=== PATIENT | male | born 1960 | race Caucasian/White ===

== ENCOUNTER 2024-10-03 09:03 | Outpatient (OUT) | payer MEDICARE, SELFPAY ==
--- OUTSIDE RECORDS SUMMARY | 2024-01-29 08:20 | XMS_ITS | Continuity of Care Document ---
Author Organization [facility] Address [address] [place] [address] Care Team Providers Care Sheriff'S Sergeant Name Role Phone Chad Mckay DDS Unavailable Unavailable Advance Directives Directive Yes / No Effective Date File Name No Information Encounters Encounter Description Practice Location Reason(s) For Visit Diagnoses Date Provider Providers Copied on Encounter [facility], [address], [place], [place], [id number], [facility] No Information Nely Bonilla. , [place]. Family History Family Member Type Diagnosis Age At Onset No Information Payers Payer name Insurance type Covered green party ID Authoriza tion(s) No Information Social History Type Description Quantity Date Captured Comments Sex Male Smoking Status No Information Chief Complaint And Reason For Visit No Information Reason For Referral Reason For Referral No Information History Of Present Illness Encounter Date Complaint History Of Prese nt Illness No Information Functional Status Date Functional Assessmen t No Information Instructions Date Instruction Additional Infor mation No Information Assessments Type Assessment Date No Information Patient Care Teams Name Effective Dates (start - stop) Status Members No Information
--- OUTSIDE RECORDS SUMMARY | 2024-08-29 05:20 | XMS_ITS ---
Author Organization [facility] Address [address] [place] [address] Care Team Providers Care Synthetic Soil Blocks Pulper Name Role Phone Christina Prajapati Unavailable [phone] BannerImani ureña Unavailable [phone] Reason For Referral Reason APPROVED............ ......................NOT SCHEDULED...................................[facility] MRI CERVIAL AND LUMBAR TO BE DONE AT [facility] Diagnosis 1 Spondylolisthesis of lumbar region (M43.16) Diagnosis 2 Spondylolisthesis of cervical region (M43.12) Referral Organization [facility] Referring Provider First Name Alissonarnel Referring Provider Last Name [facility] Referring Provider Speciality Orthopedic Surgery Referred Organization [facility] Referred Address [facility] Procedure 1 MRI Cervical w/o dye (61272) Procedure 2 MRI Lumbar Spine w/o Dye (04660) General Notes Fabi Sosa 2024 11:19:52 AM >, Chanel Zelaya 08/29/2024 11:23:01 AM > WAITING ON TODAY'S OFFICE NOTE, Chanel Zelaya 09/04/2024 11:35:04 AM > ANTHEM ACTIVE AND EFFECTIVE 04/30/24 PER AIM. AUTHORIZATION REQUEST SUBMITTED VIA [employer], PENDING AUTHORIZATION # [id number] WITH ANTICIPATED DETERMINATION DATE OF 09/12/24. CLINICALS FAXED TO [facility] @ [phone], Chanel Zelaya 09/05/2024 02:50:29 PM > AUTHORIZATION # [id number] APPROVED AND VALID 09/04/24-12/02/24 PER AIM. SCANNED INTO CHART AND FAXED TO [facility] MENDIETA Sara 09/08/2024 08:48:35 AM > faxed Referral Priority Routine REASON FOR VISIT Low Back Pain Social History Tobacco Use: Social History Observation Description Date Details (start date - stop date) Current Smoker NA - NA AUDIT-C (Standard) Question Answer Notes Did you have a drink containing alcohol in the p ast year? No Points 0 Interpretation Negative Tobacco Control (Standard) Question Answer Notes Tobacco use: Current smoker How many cigarettes a day do you smoke? 11-20 How soon after you wake up do you smoke your fir st cigarette? Within 5 minutes Problems Problem Type SNOMED Code ICD Code Onset Dates Problem Status W/U Status Risk Notes Problem [id number] Spondylolisthesi s of lumbar region (M43.16) Active confirmed Problem 26535867 DDD (degenerativ e disc disease), cervical (M50.30) Active confirmed Problem [id number] Spondylolisthesi s of cervical region (M43.12) Active confirmed Vital Signs Height 5 ft 9 in in 08/29/2024 Weight 127 lbs 08/29/2024 BMI 18.75 08/29/2024 Encounters Encounter Location Date Provider Diagnosis [facility] [address] [facility] [address] [address] [facility] [address] [place] [address] [place] [address] 08/29/2024 [facility] Spondylolisthesis of lumbar region M43.16 ; Compression fracture of L1 vertebra with routine healing, subsequent encounter S32.010D ; DDD (degenerative disc disease), cervical M50.30 and Spondylolisthesis of cervical region M43.12 Assessments Encounter Date Diagnosis (ICD Code) Assessment Notes Treatment Notes Treatment Clinical Notes Section Notes 08/29/2024 Spondylolisthesis of lumbar region (ICD-10 - M43.16) 1. L5 on S1 spondylolisth esis 2. L1 and L2 compression fracture-age- indeterminate 3. C5-6 DDD, spondylolisth esis 4. Balance issues affecting ambulation 08/29/2024 Compression fracture of L1 vertebra with routine healing, subsequent encounter (ICD-10 - S32.010D) 1. L5 on S1 spondylolisth esis 2. L1 and L2 compression fracture-age- indeterminate 3. C5-6 DDD, spondylolisth esis 4. Balance issues affecting ambulation 08/29/2024 DDD (degenerative disc disease), cervical (ICD-10 - M50.30) 1. L5 on S1 spondylolisth esis 2. L1 and L2 compression fracture-age- indeterminate 3. C5-6 DDD, spondylolisth esis 4. Balance issues affecting ambulation 08/29/2024 Spondylolisthesis of cervical region (ICD-10 - M43.12) 1. L5 on S1 spondylolisth esis 2. L1 and L2 compression fracture-age- indeterminate 3. C5-6 DDD, spondylolisth esis 4. Balance issues affecting ambulation 08/29/2024 Other Plan established by Dr. Desir. Patient evaluated by myself and Dr. Desir today. For the patient's low back pain and spondylolisthesis I am going to order an MRI of the lumbar spine to evaluate for any neural compression. I have also ordered an MRI of the cervical spine given patient's ongoing balance issues. We will see him back in the office after imaging is obtained to review and offer further recommendations. The patient is very much in agreement with the treatment and/or diagnostic plan set forth and all questions were answered to the patient's satisfaction. Thanks once again. If we can be of further service to your patients with disorders of the spine, cervical, thoracic, or lumbar, please do not hesitate to contact Dr. Desir. Best regards, 1. L5 on S1 spondylolisth esis 2. L1 and L2 compression fracture-age- indeterminate 3. C5-6 DDD, spondylolisth esis 4. Balance issues affecting ambulation Plan Of Treatment Treatment Notes Assessment Notes Other Plan established by Dr. Desir. Patient evaluated by myself and Dr. Desir today. For the patient's low back pain and spondylolisthesis I am going to order an MRI of the lumbar spine to evaluate for any neural compression. I have also ordered an MRI of the cervical spine given patient's ongoing balance issues. We will see him back in the office after imaging is obtained to review and offer further recommendations. The patient is very much in agreement with the treatment and/or diagnostic plan set forth and all questions were answered to the patient's satisfaction. Thanks once again. If we can be of further service to your patients with disorders of the spine, cervical, thoracic, or lumbar, please do not hesitate to contact Dr. Desir. Best regards, Pending Test Test Name Order Date Lumbar spine, 4v flex ext - 32339 2024 Cervical spine,ap,lat,flex,ext - 39947 0 08/29/2024 MRI : Cervical Spine W/O Contrast - 7214 1 08/29/2024 MRI : Lumbosacral Spine W/O Contrast - 7 8 08/29/2024 Referrals Referral Date Details 08/29/2024 08/29/2024, APPROVED ..................................NOT SCHEDULED...................................[facility] CERVIAL AND LUMBAR TO BE DONE AT [place], [place] Next Appt Details Follow Up: AFTER IMAGING, Re ason: Progress Notes * KORI MONTENEGRODOB:1960 ( 63 yo M)Acc No.[id number]:08/29/2024 Patient: KORI TILLEY Provider: VIRGINIA Cárdenas :1960 A ge:63 Y S ex:Male Date:08/29/2024 Address:[address] [place] [address] Subjective: * Chief Complaints: * 1 . Low Back Pain. * HPI: G eneral Follow Up Information: Dictated by Iamni Cade PA-C Thank you for referring your patient to see Dr. Desir in surgical spine consultation at the [facility]. Patient is a 63-year-old male that presents with approximately 10 months of low back pain after a fall where he ended up with a periprosthetic femur fracture. He has been in an extended care facility for the most part since that time. Recently he came home and states that he fell about 3 feet off of a porch onto his back on , 08/17. He denies any radicular lower extremity pain or paresthesias but does have peripheral neuropathy to his feet. He is still walking with a rollator walker. He has also had ongoing balance issues that he states his doctors have not been able to help with or pinpoint the source causing it. He denies any neck pain or upper extremity pain or paresthesias. Activities that aggravate his back pain are sitting, standing, walking, bending forward, lying on his stomach, rising from sitting, changing positions. Sitting and leaning forward help relieve his pain. He has been taking Percocet and doing physical therapy that has been helpful. Current VAS score of 7 out of 10. Patient denies bowel or bladder incontinence/retention or saddle anesthesia. G eneral Info per Patient Report: Side affected is L eft. J oint or body part affected is?leg. D ate of Injury: Tova garcia 2023. S tart of Pain/Cause of Injury B roke femur on left. W ork related: N o. M otor vehicle accident: N o. M VA N o. Third green party responsibility: N o. T ype of pain: A perla in knee and stinging in foot.? Sometime hard to sleep. * ROS: E ar/Nose/Throat: Loss of Hearing Y es. E yes: Glasses/ Contacts Y es. C hange in Vision Y es.? G astrointestinal: Nausea/Vomiting Y es. H eartburn/Acid Stomach Y es.? S kin: Easy Bruising Y es. M usculoskeletal: Joint pain Y es. B ack Pain Y es. D enies N jeffery Pain. R espiratory: Morning Cough Y es. S hortness of Breath Y es. C ardiovascular: Leg Swelling Y es. G enitourinary: Denies I ncontinence. N eurological: Blackouts/Fainting Y es. P sychiatric: Anxiety Y es. * Medical History: B ronchitis, Liver Disease, Anxiety, Alcoholism. * Family History: M other: diagnosed with Diabetes, Arthritis. S iblings: diagnosed with Hypertension, Diabetes, Heart disease, Alcoholism. F ather: diagnosed with Arthritis, Alcoholism. * Social History: E xercise regularly D o you exercise? Y es, H ow many times per week? 1 time,?How long do you exercise? 1 0 min[address] your place of residence? W here do you live? P rivate home. W orking status W hat is your working status N ot Working.?Marital status M arital Status M arried. A CHAPO-C (Standard) D id you have a drink containing alcohol in the past year? N o, P oints 0 , I nterpretation N egative. T obacco Control (Standard) T obacco use: C urrent smoker, H ow many cigarettes a day do you smoke? 1 1-20, H ow soon after you wake up do you smoke your first cigarette??Within 5 minutes. * Medications: N one Objective: * Vitals: P ain Scale (NRS): 8, Ht: 5 ft 9 in, Wt: 127 lbs, BMI:18.75. * Examination: G eneral examination: O n examination, the patient is well-developed, well-nourished, well-groomed, alert and oriented x3, normal mood. Patient ambulates with antalgic gait and is utilizing a walker. Limited lumbar ROM, full cervical ROM. Midline tender over the lumbar spine, no tenderness over the cervical spine.The 5/5 muscle strength bilateral upper and lower extremities except 4/5 right hip flexion. Sensory intact bilateral upper and lower extremities. Negative Anisa and Spurling bilaterally. Negative clonus and SLR bilaterally. 2+ symmetric degenerative flexion bilateral upper and lower extremities. X -ray Imaging Studies: 4 view x-rays of the lumbar spine AP/lateral/flexion/extension were taken in office today and reviewed interpreted by myself as compression deformities of L1and L2, age-indeterminate, no previous imaging available to compare. Anterolisthesis of L5 on S1, appears stable in flexion/extension views. Bowel gas and atherosclerosis of the aorta and iliac arteries degrade the visibility. 4 view x-rays of the cervical spine AP/lateral/flexion/extension were taken in office today and reviewed and interpreted by myself as negative for apparent fracture x-ray. Degenerative disc disease most notable at C5-6. Retrolisthesis of C5 on 6 that does not appear to change in flexion or extension views, again there are atherosclerotic changes of the carotid artery obscuring some of the views. Assessment: * Assessment: 1. S pondylolisthesis of lumbar region - M43.16 (Primary) 2 . C ompression fracture of L1 vertebra with routine healing, subsequent encounter - S32.010D 3 .?DDD (degenerative disc disease), cervical - M50.30 4 . S pondylolisthesis of cervical region - M43.12 1. L5 on S1 spondylolisthesi s 2. L1 and L2 compression [id number] 3. C5-6 DDD, spondylolisthesis 4. Balance issues affecting ambulation. Plan: * Treatment: 2. C ompression fracture of L1 vertebra with routine healing, subsequent encounter I maging: MRI : Lumbosacral Spine W/O Contrast - 10042 3. D DD (degenerative disc disease), cervical I maging: MRI : Cervical Spine W/O Contrast - 58630 4. S pondylolisthesis of cervical region I maging: MRI : Cervical Spine W/O Contrast - 90202 Referral To: Reason:APPROVED............................... ...NOT SCHEDULED...................................[facility] CERVIAL AND LUMBAR TO BE DONE AT [facility] 5. O thers I maging: Lumbar spine, 4v flex ext - 14074 I maging: Cervical spine,ap,lat,flex,ext - 39541 Notes: Plan established by Dr. Desir. Patient evaluated by myself and Dr. Desir today. For the patient's low back pain and spondylolisthesis I am going to order an MRI of the lumbar spine to evaluate for any neural compression. I have also ordered an MRI of the cervical spine given patient's ongoing balance issues. We will see him back in the office after imaging is obtained to review and offer further recommendations. The patient is very much in agreement with the treatment and/or diagnostic plan set forth and all questions were answered to the patient's satisfaction. Thanks once again. If we can be of further service to your patients with disorders of the spine, cervical, thoracic, or lumbar, please do not hesitate to contact Dr. Desir. Best regards, * Procedure Codes: 7 0 X-ray Lumbar Spine, 5 view complete, 61360 X-ray Cervical Spine, 4 views * Follow Up: A [facility] Forms: * Images: * Electronic signature of Von Cade PA-C on 10/03/2024 at 09:10 AM EDT Sign off status: Pending * Provider: VIRGINIA Cárdenas Date: 0 08/29/2024 Generated for Printi cassius/Faileneg/eTransmitting on: 0 10/03/2024 09:10 AM EDT History and Physical Notes * HPI (History of Present Illness) Category Sub-Category Detail Notes Category Not es General Follow Up Information Dictated by Imani Cade PA-C Thank you for referring your patient to see Dr. Desir in surgical spine consultation at the [facility]. Patient is a 63-year-old male that presents with approximately 10 months of low back pain after a fall where he ended up with a periprosthetic femur fracture. He has been in an extended care facility for the most part since that time. Recently he came home and states that he fell about 3 feet off of a porch onto his back on , 08/17. He denies any radicular lower extremity pain or paresthesias but does have peripheral neuropathy to his feet. He is still walking with a rollator walker. He has also had ongoing balance issues that he states his doctors have not been able to help with or pinpoint the source causing it. He denies any neck pain or upper extremity pain or paresthesias. Activities that aggravate his back pain are sitting, standing, walking, bending forward, lying on his stomach, rising from sitting, changing positions. Sitting and leaning forward help relieve his pain. He has been taking Percocet and doing physical therapy that has been helpful. Current VAS score of 7 out of 10. Patient denies bowel or bladder incontinence/retention or saddle anesthesia. General Info per Patient Report Side affected is Left Joint or body part affected is leg Work related: No Motor vehicle accident: No Type of pain: Achy in knee and sti nging in foot. Sometime hard to sleep Date of Injury: November 09, 2023 Start of Pain/Cause of Injury Broke femu r on left Third green party responsibility: No MVA No Examination Category Sub-Category Detail Notes Category Not es General examination On exami nation, the patient is well-developed, well-nourished, well-groomed, alert and oriented x3, normal mood. Patient ambulates with antalgic gait and is utilizing a walker. Limited lumbar ROM, full cervical ROM. Midline tender over the lumbar spine, no tenderness over the cervical spine.The 5/5 muscle strength bilateral upper and lower extremities except 4/5 right hip flexion. Sensory intact bilateral upper and lower extremities. Negative Anisa and Spurling bilaterally. Negative clonus and SLR bilaterally. 2+ symmetric degenerative flexion bilateral upper and lower extremities. X-ray Imaging Studies 4 view x-rays of the lumbar spine AP/lateral/flexion/extension were taken in office today and reviewed interpreted by myself as compression deformities of L1and L2, age-indeterminate, no previous imaging available to compare. Anterolisthesis of L5 on S1, appears stable in flexion/extension views. Bowel gas and atherosclerosis of the aorta and iliac arteries degrade the visibility. 4 view x-rays of the cervical spine AP/lateral/flexion/extension were taken in office today and reviewed and interpreted by myself as negative for apparent fracture x-ray. Degenerative disc disease most notable at C5-6. Retrolisthesis of C5 on 6 that does not appear to change in flexion or extension views, again there are atherosclerotic changes of the carotid artery obscuring some of the views. Consultation Request Notes Referral Date Referring Provider Referred Provider Not jens 08/29/2024 Christina Prajapati , APPROVED... ....................... ........NOT SCHEDULED......................... ..........[facility] MRI CERVIAL AND LUMBAR TO BE DONE AT [facility]
--- OUTSIDE RECORDS SUMMARY | 2024-10-03 09:10 | XMS_ITS | Encounter Summary ---
Author Organization [facility] Address [address] [place] [address] Phone Care Team Providers Care Coding Coordinator Name Role Phone Unavailable Primary Care Provider Unavailabl e Encounter Details Date Type Department Care Team (Late st Contact Info) Description 11/05/2023 Scanned Document [facility] [address] [place] [id number] Scanning, Generic Provider Social History Tobacco Use Types Packs/Day Years Used Date Smoking Tobacco: Never Assessed Sex and Gender Information Value Date Recorded Sex Assigned at Not on file Legal Sex Male 12:34 PM EST Gender Identity Not on file Sexual Orientation Not on file documented as of this encounter Plan of Treatment Not on file documented as of this encounter Procedures Procedure Name Priority Date/Time Associated Diagnosis Comments ECHOCARDIOGRAM 11/05/2023 documented in this encounter Results * Echocardiogram (11/05/2023) Narrative 11/05/2023 Ordered by an unspecified provider. us Generic Provider Scanning CV ECHO PROCEDURES Fin al Result documented in this encounter Visit Diagnoses Not on filedocumented in this encounter
--- OUTSIDE RECORDS SUMMARY | 2024-10-03 09:10 | XMS_ITS | Clinical Summary ---
Author Organization [facility] Address [address] [place] [address] Care Team Providers Care General Car Supervisor Yard Name Role Phone Samaria Florence MD Primary Care Provider [phone] Allergies No known active allergies Medications clopidogrel (Plavix) 75 MG tablet 1 (one) time each day at the same time. Active albuterol HFA 90 mcg/act inhaler every 6 (six) hours. Active gabapentin (Neurontin) 300 MG capsule 1 capsule. Active HYDROcodone-june taminophen (Tangier) 5-325 MG tablet TAKE 1 TABLET BY MOUTH EVERY 6 HOURS FOR 3 DAYS NEEDED FOR PAIN 3 Active Folic Acid 20 MG capsule Folic Acid Active OMEPRAZOLE PO Omeprazole Activ e Active Problems No known active problems Family History Medical History Relation Name Comments Cancer Father Diabetes Mother Heart disease Mother Relation Name Status Comments Father Mother Social History Tobacco Use Types Packs/Day Years Used Date Smoking Tobacco: Every Day Cigarettes Passive Smoke Exposure: Current Tobacco Cessation:Ready to Q uit: Not Asked; Counseling Given: Not Answered Alcohol Use Standard Drinks/Week Comments Yes 0 (1 standard drink = 0.6 oz pur e alcohol) 4+/week Sex and Gender Information Value Date Recorded Sex Assigned at Not on file Legal Sex Male 6:48 PM EDT Gender Identity Not on file Sexual Orientation Not on file Last Filed Vital Signs Vital Sign Reading Time Taken Comments Blood Pressure 98/65 07/10/2017 12:00 PM EDT Pulse - - Temperature - - Respiratory Rate - - Oxygen Saturation - - Inhaled Oxygen Concentration - - Weight 54.4 kg (120 lb) 09/08/2021 12:00 PM EDT Height 165.7 cm (5' 5.25 ) 09/08/2021 12:00 PM E DT Body Mass Index 19.82 09/08/2021 12:00 PM EDT Plan of Treatment Not on file Insurance [facility] Care Teams General Car Supervisor Yard Relationship Specialty Start Date End Date Samaria Florence MD [address] [place] [address] PCP - General Internal Medicine 12/20/22
--- OUTSIDE RECORDS SUMMARY | 2024-10-03 09:10 | XMS_ITS | Clinical Summary ---
Author Organization [facility] Address [address] [place] [address] Care Team Providers Care Applications Project Manager Name Role Phone Unavailable Primary Care Provider Unavailabl e Medications No known medications Encounters Date Type Department Care Team Description 08/21/2024 [place] [address] Sudhir Silverman, LODGE OFFICER.DIRECTOR SCHOOL OF NURSING 08/14/2024 [place] [address] Sudhir Silverman LODGE OFFICER.DIRECTOR [employer]URSING 08/04/2024 Progress Note [facility] Logistics Analytics Manager [address] [facility] [place] [address] Sean Hawkins MD 07/26/2024 Refill [facility] [address] [place] [address] Nehal Moreno, LODGE OFFICER.FACILITY MANAGER 07/26/2024 Refill [facility] [address] [place] [address] [address] Conway, LODGE OFFICER.FACILITY MANAGER 07/07/2024 [place] [address] Sudhir Silverman, LODGE OFFICER.DIRECTOR SCHOOL OF NURSING from Last 3 Months Social History Tobacco Use Types Packs/Day Years Used Date Smoking Tobacco: Never Assessed Sex and Gender Information Value Date Recorded Sex Assigned at Not on file Legal Sex Male 10:28 AM EDT Gender Identity Not on file Sexual Orientation Not on file Plan of Treatment Not on file Insurance [facility] [employer] [place] [employer] MEDICARE ADVANTAGE O
--- OUTSIDE RECORDS SUMMARY | 2024-10-03 09:10 | XMS_ITS | Encounter Summary ---
Author Organization [facility] Address [address] [place] [address] Care Team Providers Care Land Leasing Examiner Name Role Phone Samaria Florence MD Primary Care Provider [phone] Encounter Details Date Type Department Care Team (Late st Contact Info) Description 06/06/2023 Abstract [facility] [address] [place] [id number] William Bowers, [address] [place] [address] Social History Tobacco Use Types Packs/Day Years Used Date Smoking Tobacco: Every Day Cigarettes Passive Smoke Exposure: Current Alcohol Use Standard Drinks/Week Comments Yes 0 (1 standard drink = 0.6 oz pur e alcohol) 4+/week Sex and Gender Information Value Date Recorded Sex Assigned at Not on file Legal Sex Male 6:48 PM EDT Gender Identity Not on file Sexual Orientation Not on file documented as of this encounter Plan of Treatment Not on file documented as of this encounter Visit Diagnoses Not on filedocumented in this encounter Care Teams Land Leasing Examiner Relationship Specialty Start Date End Date Samaria Florence MD [address] [place] [address] PCP - General Internal Medicine 12/20/22 documented as of this encounter
--- OUTSIDE RECORDS SUMMARY | 2024-10-03 09:10 | XMS_ITS | Clinical Summary ---
Author Organization [facility] Address [address] [place] [address] Phone Care Team Providers Care Louver Mortiser Operator Name Role Phone Unavailable Primary Care Provider Unavailabl e Social History Tobacco Use Types Packs/Day Years Used Date Smoking Tobacco: Never Assessed Sex and Gender Information Value Date Recorded Sex Assigned at Not on file Legal Sex Male 12:34 PM EST Gender Identity Not on file Sexual Orientation Not on file Plan of Treatment Health Maintenance Due Date Last Done Comments Bone Density Scan 1960 CT Colonography 1960 Colonoscopy 1960 Colorectal Cancer Screening 1960 FIT-DNA (Cologuard) 1960 FIT 1960 Lipid Panel 1960 Sigmoidoscopy 1960 Yearly Adult Physical 1960 MMR Vaccines (1 of 1 - Standard series) 12/01/1959 Diabetes Screening 1976 Hepatitis C Screening 1976 Hepatitis A Vaccines (1 of 2 - Risk 2-dose series) 1977 Pneumococcal Vaccine (1 of 2 - PCV) 1977 08/23/2009 DTaP/Tdap/Td Vaccines (1 - Tdap) 1980 Zoster Vaccines (1 of 2) 2008 Hepatitis B Vaccines (1 of 3 - Risk 3-dose series) 2018 RSV High Risk: (Elderly (60+) or Population) (1 - Risk 60-74 years 1-dose series) 2018 COVID-19 Vaccine (3 - season) 2023 08/09/2020, 07/20/2020 Influenza Vaccine (Season Ended) 2024 04/26/2022, 02/03/2021, 06/18/2020, Additional history exists HIB Vaccines Aged Out No longer eligi ble based on patient's age to complete this topic HPV Vaccines Aged Out No longer eligi ble based on patient's age to complete this topic IPV Vaccines Aged Out No longer eligi ble based on patient's age to complete this topic Meningococcal Vaccine Aged Out No aldo macey eligible based on patient's age to complete this topic Rotavirus Vaccines Aged Out No longer eligible based on patient's age to complete this topic Insurance MEDICARE PART A [facility] Attn: [address] [place] [address] MEDICAID MEDICARE PART A [facility] Attn: [address] [place] [address] MEDICAID
--- OUTSIDE RECORDS SUMMARY | 2024-10-03 09:10 | XMS_ITS | Patient Health Record ---
Author Organization [facility] Address [address] [place] [address] Care Team Providers Care End Frazer Name Role Phone Christina Prajapati Unavailable [phone] Imani Cade Unavailable [phone] Reason For Referral Reason APPROVED............ ......................NOT SCHEDULED...................................[facility] CERVIAL AND LUMBAR TO BE DONE AT [facility] Diagnosis 1 Spondylolisthesis of lumbar region (M43.16) Diagnosis 2 Spondylolisthesis of cervical region (M43.12) Referral Organization [facility] Referring Provider First Name Marianneangelina Referring Provider Last Name [facility] Referring Provider Speciality Orthopedic Surgery Referred Organization [facility] Referred Address [facility] Procedure 1 MRI Cervical w/o dye (83163) Procedure 2 MRI Lumbar Spine w/o Dye (01857) General Notes Fabi Sosa 2024 11:19:52 AM >, Chanel Zelaya 08/29/2024 11:23:01 AM > WAITING ON TODAY'S OFFICE NOTE, Chanel Zelaya 09/04/2024 11:35:04 AM > ANTHEM ACTIVE AND EFFECTIVE 04/30/24 PER [facility]. AUTHORIZATION REQUEST SUBMITTED VIA [email or web address], PENDING AUTHORIZATION # [id number] WITH ANTICIPATED DETERMINATION DATE OF 09/12/24. CLINICALS FAXED TO [facility] @ [phone], Chanel Zelaya 09/05/2024 02:50:29 PM > AUTHORIZATION # [id number] APPROVED AND VALID 09/04/24-12/02/24 PER AIM. SCANNED INTO CHART AND FAXED TO [facility] MENDIETA Sara 09/08/2024 08:48:35 AM > faxed Referral Priority Routine Social History Tobacco Use: Social History Observation [...] Problem Status W/U Status Risk Notes Problem [id number] Spondylolisthesi s of cervical region (M43.12) Active confirmed Problem [id number] Spondylolisthesi s of lumbar region (M43.16) Active confirmed Problem [id number] DDD (degenerativ e disc disease), cervical (M50.30) Active confirmed Vital Signs Height 5 ft 9 in in 08/29/2024 Weight 127 lbs 08/29/2024 BMI 18.75 08/29/2024 Encounters Encounter Location Date Provider Diagnosis [facility] Office [address] [place] [address] [address] [place] [address] 08/29/2024 [facility] Spondylolisthesis of lumbar region M43.16 ; Compression [...] Balance issues affecting ambulation Plan Of Treatment Pending Test Test Name Order Date Lumbar spine, 4v flex ext - 86211 2024 Cervical spine,ap,lat,flex,ext - 67966 0 08/29/2024 MRI : Cervical Spine W/O Contrast - 7214 1 08/29/2024 MRI : Lumbosacral Spine W/O Contrast - 7 2148 08/29/2024 Insurance Providers Payer Name Payer Address Payer Phone Subscriber Number Group Number Insured Name Patient Relationship to Insured Coverage Start Date Coverage End Date Medicare [place] [employer] [address] [place] [address] [id number] [facility] KORI MONTENEGRO Self - patient is the insured 5 [facility] [address] [place] [address] [id number] KORI MONTENEGRO Self - patient is the insured 5 Medical (General) History Medical History History ICD Code Bronchitis Liver Disease Anxiety Alcoholism
--- OUTSIDE RECORDS SUMMARY | 2024-10-03 09:10 | XMS_ITS | Encounter Summary ---
Author Organization [facility] Address [address] [place] [address] Care Team Providers Care Field Instructor Name Role Phone Samaria Florence MD Primary Care Provider [phone] Encounter Details Date Type Department Care Team (Late st Contact Info) Description 12/27/2022 Abstract [facility] [address] [place] [id number] William Bowers DO [address] [place] [address] Social History Tobacco Use Types [...] on filedocumented in this encounter Care Teams Field Instructor Relationship Specialty Start Date End Date Samaria Florence MD [address] [place] [place] [address] PCP - General Internal Medicine 12/20/22 documented as of this encounter
--- OUTSIDE RECORDS SUMMARY | 2024-10-03 09:10 | XMS_ITS | Continuity of Care Document ---
Author Organization [facility] Address [address] [place] [address] Phone [phone] Care Team Providers Care Control Officer Name Role Phone [place]ven[place] kim Care Team Information Rece iver [phone] Problems Active Problems Provider Date Essential hypertension Onset: Family History Date Family Member(s) Observation Comments Mother Cardiac Arrest First Brother Cardiac Arrest First Sister Stroke First Sister Cardiac Arrest Social History Type Date Description Comments ETOH Use Occasionally consumes beer Recreational Drug Use Denies Drug Use Tobacco Use Start: Unknown Patient is a cur rent smoker, smokes every day Results Test Acquired Date Facility Test Result H/L Range N ote .BMP W/Egfr-LC 03/26/2017 [facility] [phone] .Sodium 126 .Potassium 3.6 .Chloride 102 .Carbon Dioxide 21 .Calcium 7.9 .GFR-LC >60 High 20 .Creatinine-LC 0.5 .BUN 11 .Hemoglobin And Hematocrit 03/26/2017 [facility] [phone] .Hemoglobin Blood 8.7 .Hematocrit 25.3 .BMP W/Egfr-LC 03/25/2017 [facility] [phone] .Potassium 3.9 .Chloride 99 .Carbon Dioxide 23 .GFR-LC >60 High 20 .Creatinine-LC 0.8 .BUN 13 .Hemoglobin And Hematocrit 03/25/2017 [facility] [phone] .Hemoglobin Blood 9.4 .Hematocrit 26.7 .BMP W/Egfr-LC 03/23/2017 [facility] [phone] .Sodium 122 .Potassium 3.8 .Chloride 94 .Carbon Dioxide 21 .Calcium 8.1 .Glucose Serum 107 .GFR-LC >60 High 20 .Creatinine-LC 0.6 .BUN 6 .Magnesium 03/23/2017 [facility] [phone] .Magnesium 1.6 .Hemoglobin And Hematocrit 03/23/2017 [facility] [phone] .Hemoglobin Blood 8.9 .Hematocrit 25.9 .Urinalysis-Rout ine 03/23/2017 [facility] [phone] Ua Specific [place] 1.010 Ua PH Test Strip 6.0 Ua Color ORANGE Ua Appearance CLEAR Ua WBC 9.7 Ua Protein NEG Ua Glucose NEG Ua Ketones TRACE Ua Bilirubin NEG Ua Urobilinogen 0.2 Ua Nitrite NEG Ua Occult Blood NEG Assessments Date Code Description Provider 06/22/2021 E87.1 Hypo-osmolality and hyponatr emia Som Christiansen MD 06/22/2021 F10.10 Alcohol abuse, flaco Christiansen MD 06/22/2021 E83.42 Hypomagnesemia Som Christiansen MD 06/22/2021 S72.142A Displaced intert rochanteric fracture of left femur, initial encounter for closed fracture Som Christiansen MD 06/21/2021 E87.1 Hypo-osmolality and hyponatr emroberto Christiansen MD 06/21/2021 F10.10 Alcohol abuse, uncomplicated Som Christiansen MD 06/21/2021 E83.42 Hypomagnesemia Som Christiansen MD 06/21/2021 S72.142A Displaced intert rochanteric fracture of left femur, initial encounter for closed fracture Som Christiansen MD 06/20/2021 E87.1 Hypo-osmolality and hyponatr emroberto Christiansen MD 06/20/2021 F10.10 Alcohol abuse, lfaco Christiansen MD 06/20/2021 E83.42 Hypomagnesemia Som Christiansen MD 06/20/2021 S72.142A Displaced intert rochanteric fracture of left femur, initial encounter for closed fracture Som Christiansen MD 06/18/2021 E87.1 Hypo-osmolality and hyponatr hira Christiansen MD 06/18/2021 F10.10 Alcohol abuse, uncomplicated Som Christiansen MD 06/18/2021 E83.42 Hypomagnesemia Som Christiansen MD 06/18/2021 S72.142A Displaced intert rochanteric fracture of left femur, initial encounter for closed fracture Som Christiansen MD 06/17/2021 E87.1 Hypo-osmolality and hyponatr emia Shaun Najera M.D. 06/17/2021 F10.10 Alcohol abuse, uncomplicated Shaun Najera M.D. 06/17/2021 E83.42 Hypomagnesemia Shaun Najera M.D. 06/17/2021 S72.142A Displaced intert rochanteric fracture of left femur, initial encounter for closed fracture Shaun Najera M.D. 11/22/2020 E87.1 Hypo-osmolality and hyponatr emia Shaun Najera M.D. 11/22/2020 E83.52 Hypercalcemia Randa Menjivar 11/22/2020 E87.6 Hypokalemia Clara Menjivar 11/22/2020 F10.10 Alcohol abuse, uncomplicated Shaun Najera M.D. 11/19/2020 E87.1 Hypo-osmolality and hyponatr emia Som Christiansen MD 11/19/2020 E83.52 Hypercalcemia Som Christiansen MD 11/19/2020 E87.6 Hypokalemia Randa Montes 11/19/2020 F10.10 Alcohol abuse, flaco Christiansen MD 10/04/2018 E87.1 Hypo-osmolality and hyponatr emia Maria Ines Ocampo M.D. 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 10/04/2018 F10.10 Alcohol abuse, uncomplicated Maria Ines Ocampo M.D. 10/04/2018 E87.6 Hypokalemia Maria Ines Ocampo M.D. 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 Som Christiansen MD 10/03/2018 F10.10 Alcohol abuse, flaco Christiansen MD 10/03/2018 E87.6 Hypokalemia Randa Montes 03/30/2017 F10.10 Alcohol abuse, uncomplicated Som Christiansen MD 03/30/2017 E87.1 Hypo-osmolality and hyponatr emia Som Christiansen MD 03/30/2017 D63.1 Anemia in chronic kidney dis ease Som Christiansen MD 03/30/2017 E83.40 Disorders of mag nesium metabolism, unspecified Som Christiansen MD 03/29/2017 F10.10 Alcohol abuse, uncomplicated Som Christiansen MD 03/29/2017 E87.1 Hypo-osmolality and hyponatr emia Som Christiansen MD 03/29/2017 D63.1 Anemia in chronic kidney dis ease Som Christiansen MD 03/29/2017 E83.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 03/28/2017 E87.1 Hypo-osmolality and hyponatr emia Shaun Najera M.D. 03/28/2017 D63.1 Anemia in chronic kidney dis ease Shaun Najera M.D. 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 03/27/2017 F10.10 Alcohol abuse, uncomplicated Elisabet Golden, TENT WORKER 03/27/2017 E87.1 Hypo-osmolality and hyponatr emia Elisabet Golden, TENT WORKER 03/27/2017 D63.1 Anemia in chronic kidney dis ease Elisabet Golden, TENT WORKER 03/27/2017 E83.40 Disorders of mag nesium metabolism, unspecified Elisabet Golden, TENT WORKER 03/26/2017 F10.10 Alcohol abuse, uncomplicated Shaun Najera M.D. 03/26/2017 E87.1 Hypo-osmolality and hyponatr emia Shaun Najera M.D. 03/26/2017 D63.1 Anemia in chronic kidney dis ease Sahun Najera M.D. 03/26/2017 E83.40 Disorders of mag nesium metabolism, unspecified Shaun Najera M.D. 03/24/2017 F10.10 Alcohol abuse, uncomplicated Maria Ines Ocampo M.D. 03/24/2017 E87.1 Hypo-osmolality and hyponatr emia Maria Ines Ocampo M.D. 03/24/2017 D63.1 Anemia in chronic kidney dis ease Maria Ines Ocampo M.D. 03/24/2017 E83.40 Disorders of mag nesium metabolism, unspecified Maria Ines Ocampo M.D. 03/23/2017 F10.10 Alcohol abuse, uncomplicated Som Christiansen MD 03/23/2017 E87.1 Hypo-osmolality and hyponatr emia Som Christiansen MD 03/23/2017 D63.1 Anemia in chronic kidney dis ease Som Christiansen MD 03/23/2017 E83.40 Disorders of mag nesium metabolism, unspecified Som Christiansen MD
--- OUTSIDE RECORDS SUMMARY | 2024-10-03 09:10 | XMS_ITS | Encounter Summary ---
Author Organization [facility] Address [address] [place] [address] Care Team Providers Care Ticket Dispatcher Name Role Phone Samaria Florence MD Primary Care Provider [phone] Encounter Details Date Type Department Care Team (Late st Contact Info) Description 01/08/2023 Abstract [facility] [address] [place] [id number] A, Unknown Practice [address] [place], [place] [id number] Social History Tobacco Use Types Packs/Day Years [...] on filedocumented in this encounter Care Teams Ticket Dispatcher Relationship Specialty Start Date End Date Samaria Florence MD [address] [place] [address] PCP - General Internal Medicine 12/20/22 documented as of this encounter
--- NOTE | 2024-10-03 09:14 | MR_ITS ---
[address] [address] Patient Name: KORI MONTENEGRO MRN: [id number] date: 1960 Sex: M Assigned Patient Location: MRI Current Patient Location: MRI Accession/Order Number: [id number] Exam Date: 10/03/2024 14:53 Report Date: 10/03/2024 15:08 At the request of: PETRA COLEMAN Procedure: MR lumbar spine wo con MRI Cervical Spine without contrast TECHNIQUE: Multiplanar T1 and T2-weighted imaging of the cervical spine obtained. HISTORY: Chronic neck and lumbar pain. No injury. COMPARISON: None BONY ALIGNMENT: Adequate BONY LESION: None CERVICAL CORD: No significant demyelination. SKULL BASE: unremarkable. PREVERTEBRAL SOFT TISSUES: Unremarkable NASOPHARYNGEAL REGION: unremarkable. VERTEBRAL ARTERIES: unremarkable. POSTSURGICAL CHANGES: None CERVICAL SOFT TISSUES: Unremarkable C1-2 LEVEL: Unremarkable C2-3: Mild disc space narrowing. Patent central canal and neural foramen. C3-4: Mild disc space narrowing. Diffuse disc bulge. Mild crowding the cord. No cord edema or hemorrhage. Mild bilateral neural foraminal narrowing C4-5: Mild disc space narrowing. Diffuse disc bulge. Mild to moderate crowding the cord. No cord edema or hemorrhage. Mild bilateral neural foraminal narrowing C5-6: Moderate disc space narrowing. Diffuse disc bulge and endplate spurring. Mild to moderate crowding of the cord. No cord edema or hemorrhage. Mild bilateral neural foraminal narrowing C6-7: Mild disc space narrowing. Mild diffuse disc bulge. Mild central canal stenosis. Patent neural foramen. C7-T1: Mild disc space narrowing. Patent central canal and neural foramen MR/MR lumbar spine wo con IMPRESSION: Mild to moderate multilevel discovertebral degenerative changes greatest at the C5-6 level. Mild to moderate crowding of the cord greatest at the C5-6 level. No cord edema or hemorrhage. MRI Lumbar Spine withoutcontrast TECHNIQUE: Multiplanar T1 and T2-weighted imaging of lumbar spine obtained without contrast. HISTORY: Low back pain COMPARISON: None The last fully segmented vertebral pair is operationally defined as L5/S1. POST SURGERY CHANGES: None BONE MARROW INFILTRATION: None BONE MARROW EDEMA: None BONY ALIGNMENT: Adequate bony alignment identified. SPINAL CANAL: No significant central canal narrowing. LUMBAR FRACTURE: Moderate T11 central compression deformity. Mild bone marrow edema. 50% loss of height. No retropulsion. There complete flattening of the T12 vertebral body. Mild bone marrow edema. Mild retropulsion into central canal. Mild central canal stenosis. 50% anterior wedge compression fracture of the L1 vertebral body. Associated bone marrow edema. No significant retropulsion. L2 central compression deformity. Minimal bone marrow edema. Continued 50% loss of height. No retropulsion. L3 central compression deformity. Mild bone marrow edema. 25% loss of height. No retropulsion. L4 central inferior plate compression deformity. Mild bone marrow edema. No retropulsion. BONY LESIONS: None KIDNEYS: No hydronephrosis is identified. AORTA: No aortic aneurysm is seen. Left pleural effusion CONUS MEDULLARIS : The distal spinal cord is in adequate position without abnormality. Additional findings CONJOINED NERVE ROOT: None Lower thoracic level: Mild disc protrusions and retropulsion. L1-2 :Spondylosis. Mild diffuse disc bulge. Patent central canal. Mild neural foraminal narrowing L2-3: Spondylosis. Mild diffuse disc bulge. Mild central canal stenosis. Posterior element hypertrophy. Moderate bilateral neural foraminal narrowing L3-4: Spondylosis. Diffuse disc bulge. Mild central canal stenosis. Posterior element hypertrophy. Mild to moderate bilateral neural foraminal narrowing L4-5: Spondylosis. Diffuse disc bulge and endplate spurring. Mild central canal stenosis. Posterior element hypertrophy. L5-S1: Spondylosis. Mild anterolisthesis. Patent central canal. Patent neural foramen IMPRESSION: Multilevel discovertebral degenerative changes. Multilevel compression deformities from T11 L4 as described above. Associated bone marrow edema multiple levels consistent with acute component. Mild retropulsion with mild central canal stenosis. Pre-MRI plain film assessment: None Impression dictated by: Wallace Robledo M.D. 10/03/2024 3:08 PM Dictation Location: [facility] Electronically authenticated by: [id number] Y Date: 10/03/2024 15:08
--- NOTE | 2024-10-03 09:14 | MR_ITS ---
[address] [address] Patient Name: KORI MONTENEGRO MRN: [id number] date: 1960 Sex: M Assigned Patient Location: MRI Current Patient Location: MRI Accession/Order Number: [id number] Exam Date: 10/03/2024 14:53 Report Date: 10/03/2024 15:08 At the request of: PETRA COLEMAN Procedure: MR lumbar spine wo con MRI Cervical Spine without contrast TECHNIQUE: Multiplanar T1 and T2-weighted imaging of the cervical spine obtained. HISTORY: Chronic neck and lumbar pain. No injury. COMPARISON: None BONY ALIGNMENT: Adequate BONY LESION: None CERVICAL CORD: No significant demyelination. SKULL BASE: unremarkable. PREVERTEBRAL SOFT TISSUES: Unremarkable NASOPHARYNGEAL REGION: unremarkable. VERTEBRAL ARTERIES: unremarkable. POSTSURGICAL CHANGES: None CERVICAL SOFT TISSUES: Unremarkable C1-2 LEVEL: Unremarkable C2-3: Mild disc space narrowing. Patent central canal and neural foramen. C3-4: Mild disc space narrowing. Diffuse disc bulge. Mild crowding the cord. No cord edema or hemorrhage. Mild bilateral neural foraminal narrowing C4-5: Mild disc space narrowing. Diffuse disc bulge. Mild to moderate crowding the cord. No cord edema or hemorrhage. Mild bilateral neural foraminal narrowing C5-6: Moderate disc space narrowing. Diffuse disc bulge and endplate spurring. Mild to moderate crowding of the cord. No cord edema or hemorrhage. Mild bilateral neural foraminal narrowing C6-7: Mild disc space narrowing. Mild diffuse disc bulge. Mild central canal stenosis. Patent neural foramen. C7-T1: Mild disc space narrowing. Patent central canal and neural foramen MR/MR cervical spine wo con IMPRESSION: Mild to moderate multilevel discovertebral degenerative changes greatest at the C5-6 level. Mild to moderate crowding of the cord greatest at the C5-6 level. No cord edema or hemorrhage. MRI Lumbar Spine withoutcontrast TECHNIQUE: Multiplanar T1 and T2-weighted imaging of lumbar spine obtained without contrast. HISTORY: Low back pain COMPARISON: None The last fully segmented vertebral pair is operationally defined as L5/S1. POST SURGERY CHANGES: None BONE MARROW INFILTRATION: None BONE MARROW EDEMA: None BONY ALIGNMENT: Adequate bony alignment identified. SPINAL CANAL: No significant central canal narrowing. LUMBAR FRACTURE: Moderate T11 central compression deformity. Mild bone marrow edema. 50% loss of height. No retropulsion. There complete flattening of the T12 vertebral body. Mild bone marrow edema. Mild retropulsion into central canal. Mild central canal stenosis. 50% anterior wedge compression fracture of the L1 vertebral body. Associated bone marrow edema. No significant retropulsion. L2 central compression deformity. Minimal bone marrow edema. Continued 50% loss of height. No retropulsion. L3 central compression deformity. Mild bone marrow edema. 25% loss of height. No retropulsion. L4 central inferior plate compression deformity. Mild bone marrow edema. No retropulsion. BONY LESIONS: None KIDNEYS: No hydronephrosis is identified. AORTA: No aortic aneurysm is seen. Left pleural effusion CONUS MEDULLARIS : The distal spinal cord is in adequate position without abnormality. Additional findings CONJOINED NERVE ROOT: None Lower thoracic level: Mild disc protrusions and retropulsion. L1-2 :Spondylosis. Mild diffuse disc bulge. Patent central canal. Mild neural foraminal narrowing L2-3: Spondylosis. Mild diffuse disc bulge. Mild central canal stenosis. Posterior element hypertrophy. Moderate bilateral neural foraminal narrowing L3-4: Spondylosis. Diffuse disc bulge. Mild central canal stenosis. Posterior element hypertrophy. Mild to moderate bilateral neural foraminal narrowing L4-5: Spondylosis. Diffuse disc bulge and endplate spurring. Mild central canal stenosis. Posterior element hypertrophy. L5-S1: Spondylosis. Mild anterolisthesis. Patent central canal. Patent neural foramen IMPRESSION: Multilevel discovertebral degenerative changes. Multilevel compression deformities from T11 L4 as described above. Associated bone marrow edema multiple levels consistent with acute component. Mild retropulsion with mild central canal stenosis. Pre-MRI plain film assessment: None Impression dictated by: Wallace Robledo M.D. 10/03/2024 3:08 PM Dictation Location: [facility] Electronically authenticated by: [id number] Y Date: 10/03/2024 15:08
== END 2024-10-03 09:04 | disposition home or self-care (01) ==
LOC: MRI 09:07
PROVIDERS: Visit Provider Physician Assistant
DX: M43.16 Spondylolisthesis, lumbar region (principal); M50.30 Other cervical disc degeneration, unspecified cervical region; M43.12 Spondylolisthesis, cervical region; M51.369 Other intervertebral disc degeneration, lumbar region without mention of lumbar back pain or lower extremity pain
CPT/HCPCS: 72141; 72148

== ENCOUNTER 2024-10-30 16:58 | Inpatient (IN) | payer OTHER, MEDICARE, SELFPAY ==
[2024-10-30 17:26] VITALS: BP 131/75; PULSE 79; TEMP 36.3; O2SAT 98; BMI 14.8
--- NOTE | 2024-10-30 17:33 | ECG_ITS ---
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 Measurements Intervals [place] Rate: 75 P: 90 LA: 172 QRS: 19 QRSD: 104 T: 90 QT: 396 QTc: 424 Interpretive Statements 1100 Sinus rhythm 8101 Low QRS voltage in limb leads 9120 atypical ECG No previous ECG available for comparison Electronically Signed On 11-02-2024 17:08:25 EDT by GIGI WARD M.D.
--- NOTE | 2024-10-30 17:34 | ED_ITS ---
HPI HPI - General Adult General Chief complaint: Nausea/Vomiting/Diarrhea Stated complaint: VOMITING Time Seen by Provider: 10/30/24 17:07 History of Present Illness HPI narrative: 63-year-old male presents to the emergency department for nausea and vomiting. He states he cannot hold anything down. He was recently admitted to another hospital for a week and was told he had an ulcer. He does not complain of hematemesis or blood in the stool. No fever. He has been losing weight. Related Data Allergies Allergy/AdvReac Type Severity Reaction Status Date / Time No Known Drug Allergies Allergy Verified 10/30/24 17:26 Opioid HPI Opioid Management Most Recent Opioid Data: Last Pain Scale 8 Today, 17:26 Review of Systems ROS Narrative A ten point review of systems is negative except as noted above. PFSH PFSH Social History Little interest or pleasure in doing things: not at all Feeling down, depressed, or hopeless: not at all Exam Narrative Exam Narrative: Nurses note and vital signs reviewed and patient is not hypoxic. General: The patient appears in no acute distress. He is quite thin. Skin: Warm, dry, no pallor noted. There is no rash noted. Head: Normocephalic, atraumatic Eye: Normal conjunctiva, no drainage Ears, Nose, Mouth, and Throat: oral mucosa is moist. Nares patent. Cardiovascular: Regular Rate and Rhythm Respiratory: Patient is in no distress, no accessory muscle use, lungs are clear to auscultation, no wheezing, rales or rhonchi Back: non-tender GI: Soft and nontender Musculoskeletal: The patient has no evidence of calf tenderness, no pitting edema, symmetrical pulses noted bilaterally there is a healing wound on his left heel that has been addressed and has been present for months. Neurological: A&O, normal speech Psychiatric: Cooperative Constitutional Vital Signs, click to edit/add: Last Vital Signs Temp 97.3 F L 10/30/24 17:26 Pulse 79 10/30/24 17:26 Resp 18 10/30/24 17: BP 131/75 10/30/24 17:26 Pulse Ox 98 10/30/24 17:26 O2 Del Method Room Air 10/30/24 17:26 Course Vital Signs Vital signs: Vital Signs Temperature 97.3 F L 10/30/24 17: Pulse Rate 79 10/30/24 17:26 Respiratory Rate 18 10/30/24 17:26 Blood Pressure 131/75 10/30/24 17:26 Pulse Oximetry 98 10/30/24 17:26 Oxygen Delivery Method Room Air 10/30/24 17:26 Temperature 97.3 F L 10/30/24 17:26 Pulse Rate 79 10/30/24 17:26 Respiratory Rate 18 10/30/24 17:26 Blood Pressure 131/75 10/30/24 17:26 Pulse Oximetry 98 10/30/24 17:26 Oxygen Delivery Method Room Air 10/30/24 17:26 Medical Decision Making MDM Narrative Medical decision making narrative: Tests are ordered and the patient is signed out to Dr. Little at change of shift. Differential Diagnosis Differential Diagnosis: Dehydration, acute kidney injury Lab Data Lab results reviewed: Yes I reviewed the patient's lab results Labs: Lab Results 10/30/24 Range/Units 17:45 WBC 13.5 H (4.0-11.0) 10^3/uL RBC 4.06 L (4.70-6.10) 10^6/uL Hgb 12.0 L (14.0-18.0) g/dL Hct 35.8 L (42.0-54.0) % MCV 88.2 (80.0-94.0) fL MCH 29.6 (25.9-34.0) pg MCHC 33.5 (29.9-35.2) g/dL RDW 14.0 (11.0-15.0) % Plt Count 414 (150-450) 10^3/uL MPV 9.8 (9.5-13.5) fL Neut % (Auto) 75.7 H (43.0-75.0) % Lymph % (Auto) 11.9 L (20.5-60.0) % [place] % (Auto) 8.1 (1.7-12.0) % Eos % (Auto) 3.7 (0.9-7.0) % Baso % (Auto) 0.3 (0.2-2.0) % Neut # (Auto) 10.2 H (1.4-6.5) 10^3/uL Lymph # (Auto) 1.6 (1.2-3.8) 10^3/uL [place] # (Auto) 1.1 H (0.3-0.8) 10^3/uL Eos # (Auto) 0.5 (0.0-0.7) 10^3/uL Baso # (Auto) 0.0 (0.0-0.1) 10^3/uL Abs Immat Gran (auto) 0.04 H (0.00-0.03) 10^3/uL Imm/Tot Granulo (auto) 0.3 (0.0-0.5) % Sodium 132 L (136-145) mmol/L Potassium 2.8 L* (3.5-5.1) mmol/L Chloride 92 L (98-107) mmol/L Carbon Dioxide 25.0 (21.0-32.0) mmol/L Anion Gap 17.8 BUN 23.0 H (7.0-18.0) mg/dL Creatinine 1.03 (0.70-1.30) mg/dL Est GFR ( Amer) >60 (>=60 mL/min/1.73m^2) Est GFR (Non-Af Amer) >60 (>=60 mL/min/1.73m^2) BUN/Creatinine Ratio 22.3 Glucose 113 H (74-106) mg/dL Calcium 9.0 (8.5-10.1) mg/dL Total Bilirubin 0.8 (0.2-1.0) mg/dL Direct Bilirubin 0.2 (0.0-0.2) mg/dL AST 18 (15-37) U/L ALT <6 L (16-63) U/L Alkaline Phosphatase 176 H (46-116) U/L Total Protein 6.8 (6.4-8.2) g/dL Albumin 3.0 L (3.4-5.0) g/dL Globulin 3.8 g/dL Albumin/Globulin Ratio 0.8 Amylase 23 L (25-115) U/L Lipase 33.0 (16.0-77.0) U/L ECG Data Attestation: I personally reviewed and interpreted this ECG as follows: (EKG on my interpretation shows sinus rhythm with rate of 75) Discharge Plan Discharge Patient Disposition: Still a Patient
[2024-10-30 18:03] LABS: Hematocrit 35.8 % (42.0-54.0); Hemoglobin 12.0 g/dL (14.0-18.0); Immature Granulocytes Abs Auto 0.04 10^3/uL (0.00-0.03); Immature Granulocytes Pct Auto 0.3 % (0.0-0.5); Lymphocytes Absolute Auto 1.6 10^3/uL (1.2-3.8); Mean Corpuscular HGB Conc 33.5 g/dL (29.9-35.2); Mean Corpuscular Hemoglobin 29.6 pg (25.9-34.0); Mean Corpuscular Volume 88.2 fL (80.0-94.0); Platelet Count 414 10^3/uL (150-450); Red Blood Count 4.06 10^6/uL (4.70-6.10); White Blood Count 13.5 10^3/uL (4.0-11.0)
[2024-10-30] MEDS: 0.9 % SODIUM CHLORIDE 1,000 ML 1000 ML IV ×2 (18:06→20:35)
[2024-10-30 18:21] LABS: Alanine Aminotransferase <6 U/L (16-63); Albumin Globulin Ratio 0.8; Albumin Level 3.0 g/dL (3.4-5.0); Alkaline Phosphatase 176 U/L (46-116); Amylase 23 U/L (25-115); Anion Gap 17.8; Aspartate Amino Transferase 18 U/L (15-37); Blood Urea Nitrogen 23.0 mg/dL (7.0-18.0); Calcium 9.0 mg/dL (8.5-10.1); Carbon Dioxide 25.0 mmol/L (21.0-32.0); Chloride 92 mmol/L (98-107); Estimated GFR (African America >60 (>=60 mL/min/1.73m^2); Estimated GFR (Non-African Ame >60 (>=60 mL/min/1.73m^2); Globulin 3.8 g/dL; Glucose 113 mg/dL (74-106); Lipase 33.0 U/L (16.0-77.0); Sodium 132 mmol/L (136-145); Total Protein 6.8 g/dL (6.4-8.2)
[2024-10-30 18:29] LABS: Potassium 2.8 mmol/L (3.5-5.1)
--- NOTE | 2024-10-30 18:36 | CT_ITS ---
The [address] [address] Patient Name: KORI MONTENEGRO MRN: [id number] date: 1960 Sex: M Assigned Patient Location: ED.MAIN Current Patient Location: ED.MAIN Accession/Order Number: [id number] Exam Date: 10/30/2024 19:27 Report Date: 10/30/2024 19:32 At the request of: PASCALE STRONG MD Procedure: CT abdomen pelvis w con CT Abdomen and Pelvis contrast TECHNIQUE: Axial imaging with 2-D reconstruction. . The CT exam was performed using one or more the following dose reduction techniques: Automated exposure control, adjustment of the MA and/or Kv according to patient size, or use of the iterative reconstruction technique. COMPARISON: None History: Vomiting LIMITATIONS: None LOWER THORAX moderate left pleural effusion which appears loculated mild atelectasis LIVER: Unremarkable GALLBLADDER: Cholelithiasis. Contracted gallbladder. BILE DUCTS: No dilatation SPLEEN: Unremarkable PANCREAS: Chronic pancreatitis. ADRENAL GLANDS: Unremarkable KIDNEYS:Unremarkable AORTA: No abdominal aortic aneurysm identified. Atherosclerosis RETROPERITONEUM: No significant retroperitoneal abnormalities identified. MESENTERY:Unremarkable STOMACH:Unremarkable SMALL BOWEL: The small bowel loops are nondistended. APPENDIX: The appendix is normal. COLON: Unremarkable concern for fecal impaction in the rectum and constipation. URINARY BLADDER: Urinary bladder is unremarkable. REPRODUCTIVE SYSTEM: Reproductive structures are unremarkable. PNEUMOPERITONEUM: None PERITONEAL FLUID:None BONY STRUCTURES: Old left inferior pubic ramus fracture. Right hip arthroplasty. Left hip fixation hardware. Remote appearing lumbar and thoracic compression fractures. ABDOMINAL WALL: Unremarkable CT/CT abdomen pelvis w con IMPRESSION: No acute findings. No bowel obstruction. Cholelithiasis. Loculated moderate left pleural effusion. Chronic pancreatitis. Concern for fecal impaction and constipation. Impression dictated by: Wallace Robledo M.D. 10/30/2024 7:32 PM Dictation Location: [facility] Electronically authenticated by: [id number] Y Date: 10/30/2024 19:32
--- NOTE | 2024-10-30 19:08 | PC.NURSE ---
i walked into this patient's room to find this patient lying supine awake and alert talking to family and getting ready to go down to ct dept. i did introduced myself to this patient and told him i will se him when he gets back from ct dept
[2024-10-30 19:23] VITALS: BP 84/49; PULSE 73; TEMP 36.6; O2SAT 98
[2024-10-30 19:26] VITALS: BP 100/59; PULSE 73; O2SAT 98
[2024-10-30 19:36] LABS: Lactate/Lactic Acid 1.4 mmol/L (0.4-2.0)
[2024-10-30] MEDS: PANTOPRAZOLE SODIUM 40 MG VIAL IV (19:40)
[2024-10-30] MEDS: FAMOTIDINE/PF 20 MG/2 ML VIAL IV (19:40)
[2024-10-30] MEDS: POTASSIUM CHLORIDE IN WATER 10 MEQ/100 ML PREMIX 100 MEQ IV ×4 (20:18→23:36)
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
[2024-10-30 20:34] LABS: Glucose Urine UA NEGATIVE (NEGATIVE)
[2024-10-30 20:40] LABS: Cast Seen? NONE SEEN #/LPF (NONE SEEN); Crystals Seen? None Seen #/HPF (None Seen); Urine Culture Indicated NO
--- NOTE | 2024-10-30 20:56 | ECG_ITS ---
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 Measurements Intervals [place] Rate: 66 P: 54 [place]: 170 QRS: 1 QRSD: 102 T: 253 QT: 419 QTc: 440 Interpretive Statements SINUS RHYTHM LOW QRS VOLTAGE IN EXTREMITY LEADS [QRS DEFLECTION < 0.5 mV IN LIMB LEADS] SEPTAL MYOCARDIAL INFARCTION [40+ ms Q WAVE IN V1/V2], OF INDETERMINATE AGE Abnormal ECG Compared to ECG 10/30/2024 17:50:49 Myocardial infarct finding now present Electronically Signed On 11-02-2024 17:15:59 EDT by GIGI WARD M.D.
[2024-10-30 21:05] VITALS: BP 88/53; PULSE 68; TEMP 36.6; O2SAT 97
[2024-10-30 21:36] VITALS: BMI 14.8
[2024-10-30 21:49] LABS: Magnesium 1.4 mg/dL (1.8-2.4)
[2024-10-30 22:00] VITALS: BP 99/58; PULSE 70; TEMP 36.4; O2SAT 93
[2024-10-30] MEDS: 0.9 % SODIUM CHLORIDE 1,000 ML 50 ML IV (22:21)
[2024-10-30] MEDS: SENNOSIDES 8.6 MG TABLET PO (22:32)
[2024-10-30] MEDS: DOCUSATE SODIUM 100 MG CAPSULE PO (22:32)
[2024-10-31] VITALS (7 sets, daily range): BP systolic 84–117; BP diastolic 46–68; PULSE 60–70; TEMP 36.6–36.9; O2SAT 90–94
--- NOTE | 2024-10-31 03:47 | PC.NURSE ---
patient ate 3 jello's and drank starry without difficulty. Patient complaining that he wouldn't be able to eat real food for breakfast. Nurse explained with him being nauseous, throwing up, and unable to eat for 2 weeks we want to make sure his stomach is settled before we put more food into it.
[2024-10-31] MEDS: MAGNESIUM SULFATE IN WATER 2 GM/50 ML PREMIX IV (04:19)
[2024-10-31 06:05] LABS: Hematocrit 30.4 % (42.0-54.0); Hemoglobin 10.1 g/dL (14.0-18.0); Mean Corpuscular HGB Conc 33.2 g/dL (29.9-35.2); Mean Corpuscular Hemoglobin 29.6 pg (25.9-34.0); Mean Corpuscular Volume 89.1 fL (80.0-94.0); Platelet Count 324 10^3/uL (150-450); Red Blood Count 3.41 10^6/uL (4.70-6.10); White Blood Count 11.0 10^3/uL (4.0-11.0)
[2024-10-31 06:23] LABS: Alanine Aminotransferase 9 U/L (16-63); Albumin Globulin Ratio 0.8; Albumin Level 2.3 g/dL (3.4-5.0); Alkaline Phosphatase 137 U/L (46-116); Anion Gap 10.7; Aspartate Amino Transferase 18 U/L (15-37); Blood Urea Nitrogen 15.0 mg/dL (7.0-18.0); Calcium 8.4 mg/dL (8.5-10.1); Carbon Dioxide 27.1 mmol/L (21.0-32.0); Chloride 100 mmol/L (98-107); Estimated GFR (African America >60 (>=60 mL/min/1.73m^2); Estimated GFR (Non-African Ame >60 (>=60 mL/min/1.73m^2); Globulin 3.0 g/dL; Glucose 73 mg/dL (74-106); Potassium 3.8 mmol/L (3.5-5.1); Sodium 134 mmol/L (136-145); Total Protein 5.3 g/dL (6.4-8.2)
[2024-10-31] MEDS: ALBUMIN HUMAN 25 GM/100 ML PREMIX IV (08:42)
[2024-10-31] MEDS: DOCUSATE SODIUM 100 MG CAPSULE PO ×2 (08:42→21:59)
[2024-10-31] MEDS: PANTOPRAZOLE SODIUM 40 MG VIAL IV (08:42)
--- NOTE | 2024-10-31 09:25 | PM.IMHP1 ---
Internal Medicine - H&P: HPI History of Present Illness Chief complaint: NAUSEA VOMITING PLEURA EFFUSION CHRONIC PANCREATIT Narrative: Mickey Rivera is a 63 y/o M, h/o smoking, alcohol abuse (sober for past year), chronic pancreatitis, COPD self reported h/o pleural effusion, bedbug bites, decubitus ulcers of heel stage II, recent admission to [facility] with intractable nausea and vomiting, presented to [facility] ER on 10/30/24 with recurrence of symptoms prompting medical admission. On assessment at bedside on the regular nursing floor, patient resting comfortably in bed, states feels improved overall, however does have longstanding progressive weight loss and shortness of breath with ambulation. No chest pain, fevers, or chills. Is able to care for self in some limited capacity, bathes himself however does get short of breath with ambulation to car. Denies any blood in stool or urine. Did have fecal disimpaction in ER. [facility] Medical History (Updated 10/31/24 @ 04:44 by Krystal Salinas) PAD (peripheral artery disease) ?I73.9 - Peripheral vascular disease, unspecified (ICD-10) Carotid stenosis ?I65.29 - Occlusion and stenosis of unspecified carotid artery (ICD-10) Esophagitis ?K20.90 - Esophagitis, unspecified without bleeding (ICD-10) Vertebral fracture Osteoporosis ?M81.0 - Age-related osteoporosis without current pathological fracture (ICD-10) HLD (hyperlipidemia) ?E78.5 - Hyperlipidemia, unspecified (ICD-10) HTN (hypertension) ?I10 - Essential (primary) hypertension (ICD-10) CAD (coronary artery disease) ?I25.10 - Atherosclerotic heart disease of [place] coronary artery without angina pectoris (ICD-10) Chronic back pain ?M54.9 - Dorsalgia, unspecified (ICD-10) ?G89.29 - Other chronic pain (ICD-10) COPD (chronic obstructive pulmonary disease) ?J44.9 - Chronic obstructive pulmonary disease, unspecified (ICD-10) Malnutrition ?E46 - Unspecified protein-calorie malnutrition (ICD-10) Decubitus ulcer of left foot, stage 2 ?L89.892 - Pressure ulcer of other site, stage 2 (ICD-10) Bed bug bite ?W57.XXXA - Bitten or stung by nonvenomous insect and other nonvenomous arthropods, initial encounter (ICD-10) Hyponatremia ?E87.1 - Hypo-osmolality and hyponatremia (ICD-10) Acute vomiting ?R11.10 - Vomiting, unspecified (ICD-10) Anemia ?D64.9 - Anemia, unspecified (ICD-10) Neuropathy ?G62.9 - Polyneuropathy, unspecified (ICD-10) Ulcer GI bleed ?K92.2 - Gastrointestinal hemorrhage, unspecified (ICD-10) Alcoholism ?F10.20 - Alcohol dependence, uncomplicated (ICD-10) Surgical History (Updated 10/31/24 @ 04:44 by rKystal Salinas) Hx of esophagogastroduodenoscopy ?Z98.890 - Other specified postprocedural states (ICD-10) H/O colonoscopy ?Z98.890 - Other specified postprocedural states (ICD-10) H/O reduction of closed fracture ?Z87.81 - Personal history of (healed) traumatic fracture (ICD-10) History of cataract extraction with lens replacement History of right hip replacement ?Z96.641 - Presence of right artificial hip joint (ICD-10) History of left hip replacement ?Z96.642 - Presence of left artificial hip joint (ICD-10) Broken femur ?S72.90XA - Unspecified fracture of unspecified femur, initial encounter for closed fracture (ICD-10) Family History (Updated 10/30/24 @ 21:44 by Krystal Salinas) Sister Family history of CHF (congestive heart failure) Family history of myocardial infarction Family history of COPD (chronic obstructive pulmonary disease) Family history of stroke Mother Family history of COPD (chronic obstructive pulmonary disease) Family history of diabetes mellitus Father Family history of COPD (chronic obstructive pulmonary disease) Family history of cancer Family history of diabetes mellitus Brother Family history of diabetes mellitus Other Chronic pancreatitis Social History (Updated 10/30/24 @ 21:45 by Krystal Salinas) Within the past year, how often did you have a drink containing alcohol: never Score interpretation: A score less than 4 is consistent with normal alcohol consumption. Smoking status: Current every day smoker Non-prescribed substance use: denies use Previous occupational history: disabled Highest level of school completed/degree received: 11th grade Are you now , , , , never or living with a partner: In a typical week, how many times do you talk on the telephone with family, friends, or neighbors: 3 or more times per week How often do you get together with friends or relatives: 3 or more times per week How often do you attend caodaism or uatsdin services: never Little interest or pleasure in doing things: not at all Feeling down, depressed, or hopeless: not at all Feel stressed/tense/nervous/anxious/difficulty sleeping: not at all Due to disability, difficulty making decisions: No Do you think of yourself as: straight/heterosexual Gender Identity: male Meds Home Medications and Allergies Home Medications ?Medication ?Instructions ?Recorded ?Confirmed ?Type famotidine 40 mg tablet 40 mg PO DAILY 10/30/24 10/30/24 History pantoprazole 40 mg tablet,delayed 40 mg PO DAILY 10/30/24 10/30/24 History release acetaminophen 325 mg tablet 650 mg PO Q6H PRN pain 10/31/24 10/31/24 History albuterol sulfate 90 mcg/actuation 2 inh inhalation QID 10/31/24 10/31/24 History breath activated powder inhaler cholecalciferol (vitamin D3) 75 3,000 unit PO DAILY 10/31/24 10/31/24 History mcg (3,000 unit) tablet ferrous sulfate 325 mg (65 mg 325 mg PO DAILY 10/31/24 10/31/24 History iron) tablet (Mesfin-Time) folic acid 1 mg tablet 1 mg PO DAILY 10/31/24 10/31/24 History gabapentin 600 mg tablet 600 mg PO TID 10/31/24 10/31/24 History levothyroxine 25 mcg capsule 25 mcg PO DAILY 10/31/24 10/31/24 History midodrine 5 mg tablet 5 mg PO TID 10/31/24 10/31/24 History polyethylene glycol 3350 17 gram 17 g PO DAILY 10/31/24 10/31/24 History oral powder packet (Miralax) sucralfate 1 gram tablet 1 g PO ACHS 10/31/24 10/31/24 History tiotropium bromide 1.25 2 inh inhalation DAILY 10/31/24 10/31/24 History mcg/actuation mist for inhalation (Spiriva Respimat) Allergies Allergy/AdvReac Type Severity Reaction Status Date / Time No Known Drug Allergies Allergy Verified 10/30/24 17:26 Exam Narrative Exam Narrative: Gen.: Awake, alert, in no distress, cachectic Head: Normocephalic, atraumatic ENT: Moist mucous membranes Respiratory: No respiratory distress, lungs clear bilaterally, dimished on L Cardio: Regular rate and rhythm Gastrointestinal: Abdomen is soft, nondistended and nontender to palpation Extremities: Moves extremities equally Psych: Normal mood and affect Neuro: No focal neuro deficit Skin: Warm, dry, intact Constitutional Vital Signs, click to edit/add: Last Vital Signs Temp 98.4 F 10/31/24 07:49 Pulse 61 10/31/24 07:49 Resp 14 10/31/24 07:49 BP 84/53 L 10/31/24 07:49 Pulse Ox 91 L 10/31/24 07:49 O2 Del Method Room Air 10/31/24 07:49 Internal Medicine - H&P: Reslt Labs Labs: Short CBC 10/30/24 10/31/24 Range/Units 17:45 05:38 WBC 13.5 H 11.0 (4.0-11.0) 10^3/uL Hgb 12.0 L 10.1 L (14.0-18.0) g/dL Hct 35.8 L 30.4 L (42.0-54.0) % Plt Count 414 324 (150-450) 10^3/uL BMP 10/30/24 10/31/24 17:45 05:38 Sodium 132 L 134 L Potassium 2.8 L* 3.8 Chloride 92 L 100 Carbon Dioxide 25.0 27.1 BUN 23.0 H 15.0 Creatinine 1.03 0.72 Glucose 113 H 73 L Calcium 9.0 8.4 L Liver Function 10/30/24 10/31/24 Range/Units 17:45 05:38 Total Bilirubin 0.8 0.4 (0.2-1.0) mg/dL Direct Bilirubin 0.2 (0.0-0.2) mg/dL AST 18 18 (15-37) U/L ALT <6 L 9 L (16-63) U/L Alkaline Phosphatase 176 H 137 H (46-116) U/L Albumin 3.0 L 2.3 L (3.4-5.0) g/dL Urine 10/30/24 Range/Units 20:27 Urine Color Yellow (YELLOW) Urine Clarity Clear (CLEAR) Urine pH 6.0 (5.0-9.0) Ur Specific [place] 1.015 (1.005-1.025) Urine Protein 30 A (NEG/TRACE) mg/dL Urine Glucose (UA) Negative (NEGATIVE) mg/dL Assessment and Plan Assessment and Plan (1) Decubitus ulcer of foot, stage 2: (2) Constipation: (3) Chronic pancreatitis: (4) Pleural effusion: (5) COPD (chronic obstructive pulmonary disease): (6) HTN (hypertension): Plan Mickey Rivera is a 63 y/o M, h/o smoking, alcohol abuse (sober for past year), hypothyroidism, chronic pancreatitis, COPD, self reported h/o pleural effusion, PAD, bedbug bites, decubitus ulcers of heel stage II, recent admission to [facility] with intractable nausea and vomiting, presented to [facility] ER on 10/30/24 with recurrence of symptoms prompting medical admission. 1. 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 Hypotension in the setting of possible alcoholic cirrhosis - CT abd shows no overt cirrhotic features, plan for outpatient GI per notes from [facility] admission on 09/16 - resume WAREHOUSE ASSOCIATE DRIVER midodrine 5 mg tid 3. h/o smoking, alcohol abuse (sober for past year), chronic pancreatitis, hypothyroidism, COPD, self reported h/o pleural effusion, PAD, bedbug bites, decubitus ulcers of heel stage II, constipatino - resume home levothyroxine - resume home Fe supplementation - resume home gabapentin - resume home bowel regimen, miralax and docusate Diet: regular Lines/tubes: PIV VTE prophylaxis: lovenox Code status: full Dispo: inpatient
--- NOTE | 2024-10-31 11:01 | CT_ITS ---
The [address] [address] Patient Name: KORI MONTENEGRO MRN: [id number] date: 1960 Sex: M Assigned Patient Location: [place] Current Patient Location: [place] Accession/Order Number: [id number] Exam Date: 10/31/2024 12:03 Report Date: 10/31/2024 12:17 At the request of: WALT RODRIGUEZ MD Procedure: CT chest wo con CT CHEST WITHOUT IV CONTRAST: CLINICAL HISTORY: L sided pleural effusion COMPARISON: CT abdomen pelvis 10/30/2024 TECHNIQUE: Spiral images were obtained through the chest without IV contrast. This CT exam was performed using one or more following dose reduction techniques: Automated exposure control, adjustment of the mA and/or kV according to patient size, or use of iterative reconstruction technique. FINDINGS: Mediastinum:Cardiomegaly with triple vessel coronary artery calcifications. Small hiatal hernia. No bulky mediastinal or hilar adenopathy identified with noncontrast examination. Lungs:Thickened left pleural margin likely due to chronic effusion or mild complex effusion this may be related to prior CABG.. There are associated pleural-based calcifications this can be seen in setting of prior hemorrhagic components of the effusion which can BE seen with prior chest surgery. Emphysematous changes. Left lung areas of subpleural thickening likely reactive from prior surgical change. Minimal right basilar thickening noted also likely related to prior surgery. Interlobular septal thickening identified predominantly subpleural, the left lungs likely areas of scarring or interstitial edema. Right lung apex subpleural nodularity noted 1.1 x 0.7 cm in size. Close attention on follow-up imaging recommended. Within left lower lobe, there are consolidative opacities noted areas of bronchiectasis/fibrosis likely a chronic finding possibly related to entrapment versus round atelectasis. Abd:Cholelithiasis. Small hiatal hernia. There are vascular calcification. Soft tissues/Bones: Multilevel compression fractures noted notably T5-T9 and T11-L2. Multilevel sclerosis identified with compression fractures noted may suggest these are subacute in age, correlate with exam findings and history. CT/CT chest wo con IMPRESSION: Small left-sided pleural effusion, with thickened pleural margins suggesting chronicity/mild complexity this may be related to prior CABG Emphysematous images changes with consolidative changes involving left lung likely related to areas of round atelectasis versus chronic fibrosis versus less likely areas of a trapped lung. Right lung apex nodularity likely due to chronic scarring. This may be follow-up in 6 months. Impression dictated by: Saurabh Padilla M.D. 10/31/2024 12:17 PM Dictation Location: [place] [address] Electronically authenticated by: [id number] Y Date: 10/31/2024 12:17
[2024-10-31] MEDS: MIDODRINE HCL 5 MG TABLET PO ×2 (12:18→18:01)
[2024-10-31] MEDS: ENOXAPARIN SODIUM 40 MG/0.4 ML SYRINGE SUBQ (13:28)
[2024-10-31] MEDS: GABAPENTIN 300 MG CAPSULE 600 MG PO ×2 (13:28→21:59)
[2024-10-31] MEDS: IPRATROPIUM BROMIDE 0.5 MG/2.5 ML VIAL.NEB IH ×2 (16:22→21:42)
[2024-10-31] MEDS: OXYCODONE HCL 5 MG TABLET PO (20:27)
[2024-10-31] MEDS: SENNOSIDES 8.6 MG TABLET PO (21:59)
[2024-11-01] VITALS (9 sets, daily range): BP systolic 90–105; BP diastolic 46–59; PULSE 53–64; TEMP 36.3–36.6; O2SAT 92–97
[2024-11-01] MEDS: MIDODRINE HCL 5 MG TABLET 10 MG PO (00:41)
[2024-11-01] MEDS: OXYCODONE HCL 5 MG TABLET PO ×3 (01:53→19:03)
[2024-11-01] MEDS: MIDODRINE HCL 5 MG TABLET PO ×2 (05:45→11:42)
[2024-11-01] MEDS: GABAPENTIN 300 MG CAPSULE 600 MG PO ×3 (05:45→21:11)
[2024-11-01] MEDS: LEVOTHYROXINE SODIUM 25 MCG TABLET PO (05:45)
[2024-11-01 06:52] LABS: Hematocrit 31.0 % (42.0-54.0); Hemoglobin 9.8 g/dL (14.0-18.0); Immature Granulocytes Abs Auto 0.02 10^3/uL (0.00-0.03); Immature Granulocytes Pct Auto 0.2 % (0.0-0.5); Lymphocytes Absolute Auto 2.5 10^3/uL (1.2-3.8); Mean Corpuscular HGB Conc 31.6 g/dL (29.9-35.2); Mean Corpuscular Hemoglobin 28.8 pg (25.9-34.0); Mean Corpuscular Volume 91.2 fL (80.0-94.0); Platelet Count 335 10^3/uL (150-450); Red Blood Count 3.40 10^6/uL (4.70-6.10); White Blood Count 9.4 10^3/uL (4.0-11.0)
[2024-11-01 07:05] LABS: Magnesium 1.7 mg/dL (1.8-2.4)
[2024-11-01 07:08] LABS: Anion Gap 10.7; Carbon Dioxide 26.2 mmol/L (21.0-32.0); Chloride 103 mmol/L (98-107); Potassium 3.9 mmol/L (3.5-5.1); Sodium 136 mmol/L (136-145)
[2024-11-01 07:09] LABS: Blood Urea Nitrogen 13.0 mg/dL (7.0-18.0); Calcium 8.4 mg/dL (8.5-10.1); Estimated GFR (African America >60 (>=60 mL/min/1.73m^2); Estimated GFR (Non-African Ame >60 (>=60 mL/min/1.73m^2); Glucose 88 mg/dL (74-106)
[2024-11-01] MEDS: ENOXAPARIN SODIUM 40 MG/0.4 ML SYRINGE SUBQ (09:08)
[2024-11-01] MEDS: FAMOTIDINE 20 MG TABLET 40 MG PO (09:10)
[2024-11-01] MEDS: FERROUS SULFATE 325 MG TABLET PO (09:10)
[2024-11-01] MEDS: PANTOPRAZOLE SODIUM 40 MG TABLET.DR PO (09:10)
[2024-11-01] MEDS: DOCUSATE SODIUM 100 MG CAPSULE PO ×2 (09:10→21:11)
[2024-11-01] MEDS: POLYETHYLENE GLYCOL 3350 17 GM POWDER PACKET PO (09:10)
--- NOTE | 2024-11-01 09:18 | P.IMPN_ITS ---
Progress Note: A&P Assessment and Plan (1) Decubitus ulcer of foot, stage 2: (2) Constipation: (3) Chronic pancreatitis: (4) Pleural effusion: (5) COPD (chronic obstructive pulmonary disease): (6) HTN (hypertension): Plan Mickey Rivera is a 63 y/o M, h/o smoking, alcohol abuse (sober for past year), hypothyroidism, chronic pancreatitis, COPD, self reported h/o pleural effusion, PAD, bedbug bites, decubitus ulcers of heel stage II, recent admission to [facility] with intractable nausea and vomiting, presented to [facility] ER on 10/30/24 with recurrence of symptoms prompting medical admission. 1. Nausea and vomiting in the setting of weight loss and loculated pleural effusion, and diabetic foot ulcer stage IV with purulence - symptomatically improved after IV hydration, did have EGD on 09/18 at [facility] which showed clean based ulcers with plan for repeat EGD in 3 months - given smoking history, concern for underlying lung malignancy, CT chest w/o shows chronic pleural effusion, low concern for pneumonia at this time - no immediate risk factors for TB, no travel or incarceration, no imaging concerns (discussed with radiology) quantiferon ordered to r/o - 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 Hypotension in the setting of possible alcoholic cirrhosis - CT abd shows no overt cirrhotic features, plan for outpatient GI per notes from [facility] admission on 09/16 - hold on STEAM TANK OPERATOR midodrine 5 mg tid given PAD and concern for non-healing diabetic foot ulcer 3. h/o smoking, alcohol abuse (sober for past year), chronic pancreatitis, hypothyroidism, COPD, self reported h/o pleural effusion, PAD, bedbug bites, decubitus ulcers of heel stage II, constipatino - resume home levothyroxine - resume home Fe supplementation - resume home gabapentin - resume home bowel regimen, miralax and docusate Diet: regular Lines/tubes: PIV VTE prophylaxis: lovenox Code status: full Dispo: inpatient Internal Medicine - PN: Subj Subjective Interval history: Tolerating diet, no complaints, able to ambulate with assistance. Exam Narrative Exam Narrative: Gen.: Awake, alert, in no distress, cachectic Head: Normocephalic, atraumatic ENT: Moist mucous membranes Respiratory: No respiratory distress, lungs clear bilaterally, dimished on L Cardio: Regular rate and rhythm Gastrointestinal: Abdomen is soft, nondistended and nontender to palpation Extremities: Moves extremities equally, LLE heel ulcer is stage IV with purulence Psych: Normal mood and affect Neuro: No focal neuro deficit Skin: Warm, dry, intact Constitutional Vital Signs, click to edit/add: Last Vital Signs Temp 97.6 F 11/01/24 08:00 Pulse 54 L 11/01/24 08:00 Resp 18 11/01/24 08:00 BP 98/55 11/01/24 08:00 Pulse Ox 95 11/01/24 08:15 O2 Del Method Room Air 11/01/24 08:15 O2 Flow Rate 2 11/01/24 08:00 Internal Medicine - PN: Obj Da Labs Labs: Laboratory Results - last 24 hr 11/01/24 06:15 WBC 9.4 RBC 3.40 L Hgb 9.8 L Hct 31.0 L MCV 91.2 MCH 28.8 MCHC 31.6 RDW 14.3 Plt Count 335 MPV 9.8 Neut % (Auto) 44.5 Lymph % (Auto) 26.0 Humphreys % (Auto) 10.7 Eos % (Auto) 18.1 H Baso % (Auto) 0.5 Neut # (Auto) 4.2 Lymph # (Auto) 2.5 Humphreys # (Auto) 1.0 H Eos # (Auto) 1.7 H Baso # (Auto) 0.1 Abs Immat Gran (auto) 0.02 Imm/Tot Granulo (auto) 0.2 Sodium 136 Potassium 3.9 Chloride 103 Carbon Dioxide 26.2 Anion Gap 10.7 BUN 13.0 Creatinine 0.64 L Est GFR ( Amer) >60 Est GFR (Non-Af Amer) >60 BUN/Creatinine Ratio 20.3 Glucose 88 Calcium 8.4 L Magnesium 1.7 L
--- NOTE | 2024-11-01 12:04 | XR_ITS ---
[address] [address] Patient Name: KORI MONTENEGRO MRN: [id number] date: 1960 Sex: M Assigned Patient Location: MS Current Patient Location: MS Accession/Order Number: [id number] Exam Date: 11/01/2024 13:16 Report Date: 11/01/2024 13:18 At the request of: WALT RODRIGUEZ MD Procedure: XR foot LT min 3V 3 views left foot plain film COMPARISON:None HISTORY: Left heel pain. Assessment for osteomyelitis. ACUTE FINDINGS: No acute bony destruction DEGENERATIVE CHANGE: Mild SOFT TISSUE FINDINGS: Soft tissue defect posterior heel region. No subcutaneous air. No radiodense foreign body. JOINT EFFUSION: None POSTOP CHANGES: None BONE MINERALIZATION: Decreased XR/XR foot LT min 3V IMPRESSION: Soft tissue defect posterior heel. No pain film findings of acute osteomyelitis. Impression dictated by: Wallace Robledo M.D. 11/01/2024 1:18 PM Dictation Location: [facility] [employer] Electronically authenticated by: [id number] Y Date: 11/01/2024 13:18
[2024-11-01 12:18] LABS: Lactate/Lactic Acid 1.7 mmol/L (0.4-2.0)
[2024-11-01] MEDS: VANCOMYCIN HCL 750 MG in 0.9 % SODIUM CHLORIDE 250 ML 250 MG IV ×2 (14:09→21:11)
[2024-11-01] MEDS: 0.9 % SODIUM CHLORIDE 250 ML 10 ML IV (14:09)
[2024-11-01] MEDS: SENNOSIDES 8.6 MG TABLET PO (21:11)
[2024-11-02] MEDS: OXYCODONE HCL 5 MG TABLET PO ×5 (01:43→22:19)
[2024-11-02 03:42] VITALS: BP 104/58; PULSE 68; TEMP 36.4; O2SAT 90
[2024-11-02] MEDS: LEVOTHYROXINE SODIUM 25 MCG TABLET PO (05:52)
[2024-11-02] MEDS: GABAPENTIN 300 MG CAPSULE 600 MG PO ×3 (05:52→22:19)
[2024-11-02] MEDS: VANCOMYCIN HCL 750 MG in 0.9 % SODIUM CHLORIDE 250 ML 250 MG IV ×2 (05:52→13:40)
[2024-11-02 05:57] LABS: Hematocrit 29.9 % (42.0-54.0); Hemoglobin 9.5 g/dL (14.0-18.0); Immature Granulocytes Abs Auto 0.02 10^3/uL (0.00-0.03); Immature Granulocytes Pct Auto 0.2 % (0.0-0.5); Lymphocytes Absolute Auto 2.0 10^3/uL (1.2-3.8); Mean Corpuscular HGB Conc 31.8 g/dL (29.9-35.2); Mean Corpuscular Hemoglobin 29.1 pg (25.9-34.0); Mean Corpuscular Volume 91.4 fL (80.0-94.0); Platelet Count 306 10^3/uL (150-450); Red Blood Count 3.27 10^6/uL (4.70-6.10); White Blood Count 8.6 10^3/uL (4.0-11.0)
[2024-11-02 06:05] LABS: Anion Gap 11.3; Blood Urea Nitrogen 14.0 mg/dL (7.0-18.0); Calcium 8.0 mg/dL (8.5-10.1); Carbon Dioxide 27.0 mmol/L (21.0-32.0); Chloride 103 mmol/L (98-107); Estimated GFR (African America >60 (>=60 mL/min/1.73m^2); Estimated GFR (Non-African Ame >60 (>=60 mL/min/1.73m^2); Glucose 131 mg/dL (74-106); Potassium 4.3 mmol/L (3.5-5.1); Sodium 137 mmol/L (136-145)
[2024-11-02 07:49] VITALS: BP 86/52; PULSE 60; TEMP 36.4; O2SAT 94
[2024-11-02 08:46] VITALS: PULSE 60; O2SAT 90
[2024-11-02] MEDS: DOCUSATE SODIUM 100 MG CAPSULE PO ×2 (09:20→22:19)
[2024-11-02] MEDS: FAMOTIDINE 20 MG TABLET 40 MG PO (09:20)
[2024-11-02] MEDS: PANTOPRAZOLE SODIUM 40 MG TABLET.DR PO (09:20)
[2024-11-02] MEDS: FERROUS SULFATE 325 MG TABLET PO (09:20)
[2024-11-02] MEDS: POLYETHYLENE GLYCOL 3350 17 GM POWDER PACKET PO (09:20)
[2024-11-02] MEDS: ENOXAPARIN SODIUM 40 MG/0.4 ML SYRINGE SUBQ (09:20)
[2024-11-02 10:29] LABS: Lactate/Lactic Acid 1.0 mmol/L (0.4-2.0)
--- NOTE | 2024-11-02 12:53 | PM.IMPN1 ---
Progress Note: A&P Assessment and Plan (1) Decubitus ulcer of foot, stage 2: (2) Constipation: (3) Chronic pancreatitis: (4) Pleural effusion: (5) COPD (chronic obstructive pulmonary disease): (6) HTN (hypertension): Plan Mickey Rivera is a 63 y/o M, h/o smoking, alcohol abuse (sober for past year), hypothyroidism, chronic pancreatitis, COPD, self reported h/o pleural effusion, PAD, bedbug bites, decubitus ulcers of heel stage II, recent admission to [facility] with intractable nausea and vomiting, presented to [facility] ER on 10/30/24 with recurrence of symptoms prompting medical admission. 1. 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 Hypotension in the setting of possible alcoholic cirrhosis - CT abd shows no overt cirrhotic features, plan for outpatient GI per notes from [facility] admission on 09/16 - hold on PRODUCT SAFETY ASSOCIATE midodrine 5 mg tid given PAD and concern for non-healing diabetic foot ulcer 3. h/o smoking, alcohol abuse (sober for past year), chronic pancreatitis, hypothyroidism, COPD, self reported h/o pleural effusion, PAD, bedbug bites, decubitus ulcers of heel stage II, constipatino - resume home levothyroxine - resume home Fe supplementation - resume home gabapentin - resume home bowel regimen, miralax and docusate Diet: regular Lines/tubes: PIV VTE prophylaxis: lovenox Code status: full Dispo: inpatient Internal Medicine - PN: Subj Subjective Interval history: Comfortable in bed, no chest pain or lightheadedness Exam Narrative Exam Narrative: Gen.: Awake, alert, in no distress, cachectic Head: Normocephalic, atraumatic ENT: Moist mucous membranes Respiratory: No respiratory distress, lungs clear bilaterally, dimished on L Cardio: Regular rate and rhythm Gastrointestinal: Abdomen is soft, nondistended and nontender to palpation Extremities: Moves extremities equally, LLE heel ulcer is stage IV with purulence Psych: Normal mood and affect Neuro: No focal neuro deficit Skin: Warm, dry, intact Constitutional Vital Signs, click to edit/add: Last Vital Signs Temp 97.6 F 11/02/24 07:49 Pulse 60 11/02/24 08:46 Resp 16 11/02/24 07:49 BP 86/52 L 11/02/24 07:49 Pulse Ox 90 L 11/02/24 08:46 O2 Del Method Room Air 11/02/24 08:46 O2 Flow Rate 2 11/02/24 03:42 Internal Medicine - PN: Obj Da Labs Labs: Laboratory Results - last 24 hr 11/02/24 11/02/24 05:50 09:58 WBC 8.6 RBC 3.27 L Hgb 9.5 L Hct 29.9 L MCV 91.4 MCH 29.1 MCHC 31.8 RDW 14.3 Plt Count 306 MPV 9.4 L Neut % (Auto) 46.6 Lymph % (Auto) 23.2 Guth[place] % (Auto) 9.4 Eos % (Auto) 19.9 H Baso % (Auto) 0.7 Neut # (Auto) 4.0 Lymph # (Auto) 2.0 [place] # (Auto) 0.8 Eos # (Auto) 1.7 H Baso # (Auto) 0.1 Abs Immat Gran (auto) 0.02 Imm/Tot Granulo (auto) 0.2 Sodium 137 Potassium 4.3 Chloride 103 Carbon Dioxide 27.0 Anion Gap 11.3 BUN 14.0 Creatinine 0.73 Est GFR ( Amer) >60 Est GFR (Non-Af Amer) >60 BUN/Creatinine Ratio 19.2 Glucose 131 H Lactate 1.0 Calcium 8.0 L
[2024-11-02 16:04] VITALS: BP 121/67; PULSE 66; TEMP 36.5; O2SAT 90
[2024-11-02 20:00] VITALS: BP 106/50; PULSE 70; TEMP 36.4; O2SAT 91
[2024-11-02] MEDS: SENNOSIDES 8.6 MG TABLET PO (22:19)
[2024-11-02 23:17] VITALS: BP 109/57; PULSE 71; TEMP 36.4; O2SAT 90
[2024-11-03] VITALS (8 sets, daily range): BP systolic 90–135; BP diastolic 59–70; PULSE 45–74; TEMP 36.1–36.7; O2SAT 89–94; BMI 14.8
[2024-11-03] MEDS: OXYCODONE HCL 5 MG TABLET PO ×4 (02:14→23:24)
[2024-11-03] MEDS: 0.9 % SODIUM CHLORIDE 250 ML 10 ML IV (02:15)
[2024-11-03] MEDS: VANCOMYCIN HCL 750 MG in 0.9 % SODIUM CHLORIDE 250 ML 250 MG IV (02:19)
[2024-11-03 05:57] LABS: Hematocrit 28.8 % (42.0-54.0); Hemoglobin 9.5 g/dL (14.0-18.0); Immature Granulocytes Abs Auto 0.04 10^3/uL (0.00-0.03); Immature Granulocytes Pct Auto 0.3 % (0.0-0.5); Lymphocytes Absolute Auto 2.7 10^3/uL (1.2-3.8); Mean Corpuscular HGB Conc 33.0 g/dL (29.9-35.2); Mean Corpuscular Hemoglobin 29.5 pg (25.9-34.0); Mean Corpuscular Volume 89.4 fL (80.0-94.0); Platelet Count 313 10^3/uL (150-450); Red Blood Count 3.22 10^6/uL (4.70-6.10); White Blood Count 11.6 10^3/uL (4.0-11.0)
[2024-11-03] MEDS: GABAPENTIN 300 MG CAPSULE 600 MG PO ×3 (06:07→21:37)
[2024-11-03] MEDS: LEVOTHYROXINE SODIUM 25 MCG TABLET PO (06:07)
[2024-11-03 06:17] LABS: Anion Gap 11.3; Blood Urea Nitrogen 14.0 mg/dL (7.0-18.0); Calcium 8.3 mg/dL (8.5-10.1); Carbon Dioxide 25.4 mmol/L (21.0-32.0); Chloride 102 mmol/L (98-107); Estimated GFR (African America >60 (>=60 mL/min/1.73m^2); Estimated GFR (Non-African Ame >60 (>=60 mL/min/1.73m^2); Glucose 94 mg/dL (74-106); Potassium 4.7 mmol/L (3.5-5.1); Sodium 134 mmol/L (136-145)
--- NOTE | 2024-11-03 08:22 | SWNOTE1 ---
SW received an email from Milagros at [facility]. They did receive a referral for patient and they did receive authorization to start services with pt through the [place]. AUGUSTINE let case management know.
[2024-11-03] MEDS: PANTOPRAZOLE SODIUM 40 MG TABLET.DR PO (09:05)
[2024-11-03] MEDS: FAMOTIDINE 20 MG TABLET 40 MG PO (09:05)
[2024-11-03] MEDS: DOCUSATE SODIUM 100 MG CAPSULE PO ×2 (09:05→21:37)
[2024-11-03] MEDS: FERROUS SULFATE 325 MG TABLET PO (09:06)
[2024-11-03] MEDS: POLYETHYLENE GLYCOL 3350 17 GM POWDER PACKET PO (09:06)
[2024-11-03] MEDS: ENOXAPARIN SODIUM 40 MG/0.4 ML SYRINGE SUBQ (09:06)
--- NOTE | 2024-11-03 09:27 | MR_ITS ---
The [place] [id number] Patient Name: KORI MONTENEGRO MRN: [id number] date: 1960 Sex: M Assigned Patient Location: MS Current Patient Location: MS Accession/Order Number: [id number] Exam Date: 11/03/2024 12:31 Report Date: 11/03/2024 12:39 At the request of: WALT RODRIGUEZ MD Procedure: MR foot LT wo con MR foot LT wo con 11/02/2024 9:30 AM SIGNS AND SYMPTOMS: ^concern for osteomyelitis, open wound on left heel with pain PROTOCOL: Multiplanar multisequence MR images of the left foot without IV contrast COMPARISON: 10/23/2024 FINDINGS: Images are compromised by patient motion. Soft tissues: Soft tissue ulceration is noted along the plantar aspect of the calcaneus laterally and posteriorly with accompanying edema suggesting cellulitis. Muscles: Normal. Bones: There is cortical thinning along with mild marrow edema in the calcaneus underlying the area of ulceration suspicious for osteomyelitis. Nerves: Normal. Blood vessels: Normal. MR/MR foot LT wo con IMPRESSION: Images are compromised by patient motion. Soft tissue ulceration is noted along the plantar aspect of the calcaneus laterally and posteriorly with accompanying edema suggesting cellulitis. There is cortical thinning along with mild marrow edema in the calcaneus underlying the area of ulceration suspicious for osteomyelitis. Impression dictated by: Manjinder Hamlin M.D. 11/03/2024 12:39 PM Dictation Location: [place] [address] Electronically authenticated by: [id number] Y Date: 11/03/2024 12:39
--- NOTE | 2024-11-03 11:54 | SWNOTE1 ---
SW met with pt to discuss dc needs. Pt lives at home with his and grandchildren. All young grandchildren. Pt does use a walker at home. Pt and SW spoke about HH and he is aware of [facility] services starting. SW let him know that we will send updates and once he is discharged, they will be calling to set up time to see pt. Pt does not have any concerns about discharge at this time, hoping to go home soon. Pt does have 2 steps to get in to the home, the rest is one floor. SW did ask about [facility] and if he wants his stay billed through [place] or [facility] Medicare. He did initially voiced his insurance, but then decided through [facility] was fine and that he spoke with them yesterday. SW to follow as needed. Updates were sent to [facility] services. Updates included face sheet, physician notes, and PT/OT notes.
--- NOTE | 2024-11-03 12:15 | CA_ITS ---
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 Interpretive Statements Summary of the findings: Right leg: RICO= 0.73; TBI= 0.58. Doppler waveforms demonstrate monophasic flow at the posterior tibial and dorsalis pedis arteries. Left leg: RICO= 0.33; TBI= 0.49. Doppler waveforms demonstrate monophasic flow at the dorsalis pedis artery and nearly absent posterior tibial flow. Pulse volume recordings: PVRs at the ankle levels show dampened waveforms bilaterally. Conclusion: Right and left ankle-brachial indices are suggestive of mildly reduced right and severely reduced left overall arterial flow at rest. Toe-brachial indices are suggestive of PAD. Pulse volume recordings indicate reduced resting arterial flow, especially on the left. The study shows evidence of PAD with severely reduced overall left leg arterial flow at rest. Electronically Signed On 11-03-2024 20:58:53 EDT by GIGI WARD M.D.
--- NOTE | 2024-11-03 12:16 | CM.NOTE ---
Rounds made with Dr. Blandon. Plan of care reviewed with Mr. Rivera by Dr. Blandon. Plan for MRI, Pulmonary Consult and Podiatry Consult. All questions answered.
--- NOTE | 2024-11-03 13:16 | P.PN_ITS ---
Progress Note: Subjective Subjective Interval history: Follow-up on the patient. No chest pain. No abdominal pain. Patient is feeling great. Exam Narrative Exam Narrative: [pt is awake and alert. oriented to place, time and person, cachectic and frail in appearance. Bitemporal muscle wasting HEENT: [place] conjunctiva and NL buccal mucosa Neck: Supple, no tenderness Endocrine: No Thyromegaly. Vascular: No JVD or carotid bruit. Lymphatic: No cervical lymphadenopathy. Chest: CTA no DTP. Heart RRR, no extra sound or murmur. Abd: Soft, no tenderness, no rebound and no rigidity. Increase abd girth therefore clinically I could not exclude the possibility of intra abd mass or organomegaly. LE: No cyanosis or clubbing, no varices or edema. Upper and lower extremities muscle wasting and atrophy. At least stage II ulceration involving the left ear measuring about an inch in diameter. Whitish secretion on it. Faint dorsalis pedis pulse. Neuro: A A O. Nl speech, comprehension and attention. Nl and symetrical motor and tone examination through out. []] Constitutional Vital Signs, click to edit/add: Last Vital Signs Temp 97.4 F L 11/03/24 11:42 Pulse 68 11/03/24 11:42 Resp 16 11/03/24 11:42 BP 129/68 11/03/24 11:42 Pulse Ox 91 L 11/03/24 11:42 O2 Del Method Room Air 11/03/24 09:39 O2 Flow Rate 2 11/02/24 03:42 Progress Note: Objective Labs Labs: Short CBC 11/03/24 Range/Units 05:22 WBC 11.6 H (4.0-11.0) 10^3/uL Hgb 9.5 L (14.0-18.0) g/dL Hct 28.8 L (42.0-54.0) % Plt Count 313 (150-450) 10^3/uL BMP 11/03/24 05:22 Sodium 134 L Potassium 4.7 Chloride 102 Carbon Dioxide 25.4 BUN 14.0 Creatinine 0.74 Glucose 94 Calcium 8.3 L Progress Note: A&P Assessment and Plan (1) Decubitus ulcer of foot, stage 2: (2) Constipation: (3) Chronic pancreatitis: (4) Pleural effusion: (5) COPD (chronic obstructive pulmonary disease): (6) HTN (hypertension): Plan Stage II ulceration involving the left heel Wound culture completed at [facility] came back positive for Proteus, MRSA and Enterococcus faecalis. Change antibiotic to ceftriaxone and Zyvox MRI rule out osteomyelitis. RICO index to rule out significant vascular disease Sepsis versus SIRS present on admission Thus far blood cultures negative. UA is negative. Elevated C-reactive protein. Repeat level in AM. Anemia, no evidence of acute blood loss. Patient will likely require to have anemia workup to be done in the outpatient setting to be handled by PCP in collaboration with other needed outpatient providers. This may include but not limited to EGD, colonoscopy, referral to see hematology and other needed age-appropriate cancer screening. Cachexia, frailty, muscle wasting and atrophy, moderate protein calorie nutrition Unknown theology. Possible malabsorption, possibility of anorexia, possibility of underlying malignancy I started patient on oral protein supplementation. Patient would likely require to have additional workup and investigation to rule out malignancy. This may include but not limited to needing to have an EGD, colonoscopy, prostate exam and other age-appropriate cancer screening to be arranged by PCP. Hypokalemia, hypomagnesemia Potassium and magnesium supplementation. Normal phosphorus level. Pleural effusion, scarring , abnormality seen on CT imaging of the chest for which patient was recommended to have follow-up imaging in 6 months. To be arranged by PCP COPD, no exacerbation. Patient quit smoking 2016. Patient is to follow-up with his housing relocation Hypothyroidism Continue Synthroid. Neuropathy Continue gabapentin Chronic medical conditions not listed above, incidental findings seen on labs and imaging. These would need to be addressed. Could be addressed when time and condition are appropriate. Could be addressed in the outpatient setting by PCP collaboration with other needed outpatient providers.
--- NOTE | 2024-11-03 14:02 | PT.DAILY ---
Physical Therapy Daily Note PT Daily Note/Assess Start: 11/01/24 10:23 Freq: Status: Active Protocol: Document 11/03/24 14:00 BECCA (Rec: 11/03/24 14:02 BECCA [id number]) Visit Not Completed Visit Not Completed Visit Not Completed Pt refusing,Other Due to: Other Reason Visit 1330: 1st attempt having imaging done in room with Not Completed another provider. Unable to see 1355: 2nd attempt to see pt kindly refused. Reports just needing to rest. Has had a busy day with testing/ imaging and not feeling well. Physical Therapy Daily Note/Assessment Time In/Time Out Time In 13:57 Time Out 13:59 Pain In Pain N/A Pain Out Pain N/A GG. Functional Abilities and Goals-Complete for Swing Bed Patients Only [id number]. Self-Care [id number]. Mobility
[2024-11-03] MEDS: LINEZOLID 600 MG TABLET PO ×2 (14:12→21:37)
--- NOTE | 2024-11-03 16:34 | P.CN_ITS ---
Consult Note: HPI Data of Consult Patient: new to practice Consult date: 11/03/24 Requesting Physician: WALT RODRIGUEZ MD Primary Care Provider: XOCHITL VERA Consult Narrative Reason for consult: Left heel ulcer Narrative: Mr. Rivera is a 63-year-old male admitted on 11/01/2024 for nausea and vomiting and found to be hypokalemic with pleural effusions as well as a right posterior heel ulcer which he states he has had for at least 1 year. He relates that he saw podiatry when he was admitted to [facility] recently but does not recall any treatment plans. As an outpatient he regularly sees wound care center at [facility]. He relates to regular dressing changes with application of some ointment that he does not recall the name of. He does not recall ever seeing a vascular surgeon. He denies pain currently although has known peripheral neuropathy likely secondary to alcoholism. He relates that he is feeling pretty well in comparison to when he was admitted. X-rays obtained upon admission was negative for soft tissue emphysema and cortical changes consistent with osteomyelitis. MRI that was obtained today does note bone marrow edema in the area of concern which may be concerning for osteomyelitis as dictated by the radiologist. No fluid collection or abscess was noted however images were compromised due to motion. RICO/TBI results are pending. Per chart review a previous culture of the wound resulted in proteus, MRSA & enterobacter and antibiotics have been adjusted accordingly. Upon reviewing the chart it appears that I was consulted on 11/01/24 by the hospitalist however I was not notified until this morning. cc:: CC: WALT RODRIGUEZ MD Review of Systems ROS Status of ROS 10 or more systems reviewed and unremark able except as noted in history and below Constitutional Reports: change in weight Gastrointestinal Reports: nausea and vomiting Integumentary/Breast Reports: non-healing lesion PFSH [facility] Medical History (Updated 11/03/24 @ 17:06 by Aaron Sandy DPM) PAD (peripheral artery disease) ?I73.9 - Peripheral vascular disease, unspecified (ICD-10) Carotid stenosis ?I65.29 - Occlusion and stenosis of unspecified carotid artery (ICD-10) Esophagitis ?K20.90 - Esophagitis, unspecified without bleeding (ICD-10) Vertebral fracture Osteoporosis ?M81.0 - Age-related osteoporosis without current pathological fracture (ICD- 10) HLD (hyperlipidemia) ?E78.5 - Hyperlipidemia, unspecified (ICD-10) HTN (hypertension) ?I10 - Essential (primary) hypertension (ICD-10) CAD (coronary artery disease) ?I25.10 - Atherosclerotic heart disease of [place] coronary artery without angina pectoris (ICD-10) Chronic back pain ?M54.9 - Dorsalgia, unspecified (ICD-10) ?G89.29 - Other chronic pain (ICD-10) COPD (chronic obstructive pulmonary disease) ?J44.9 - Chronic obstructive pulmonary disease, unspecified (ICD-10) Malnutrition ?E46 - Unspecified protein-calorie malnutrition (ICD-10) Decubitus ulcer of left foot, stage 2 ?L89.892 - Pressure ulcer of other site, stage 2 (ICD-10) Bed bug bite ?W57.XXXA - Bitten or stung by nonvenomous insect and other nonvenomous arthropods, initial encounter (ICD-10) Hyponatremia ?E87.1 - Hypo-osmolality and hyponatremia (ICD-10) Acute vomiting ?R11.10 - Vomiting, unspecified (ICD-10) Anemia ?D64.9 - Anemia, unspecified (ICD-10) Neuropathy ?G62.9 - Polyneuropathy, unspecified (ICD-10) Ulcer GI bleed ?K92.2 - Gastrointestinal hemorrhage, unspecified (ICD-10) Alcoholism ?F10.20 - Alcohol dependence, uncomplicated (ICD-10) Surgical History (Updated 10/31/24 @ 04:44 by Krystal Salinas) Hx of esophagogastroduodenoscopy ?Z98.890 - Other specified postprocedural states (ICD-10) H/O colonoscopy ?Z98.890 - Other specified postprocedural states (ICD-10) H/O reduction of closed fracture ?Z87.81 - Personal history of (healed) traumatic fracture (ICD-10) History of cataract extraction with lens replacement History of right hip replacement ?Z96.641 - Presence of right artificial hip joint (ICD-10) History of left hip replacement ?Z96.642 - Presence of left artificial hip joint (ICD-10) Broken femur ?S72.90XA - Unspecified fracture of unspecified femur, initial encounter for closed fracture (ICD-10) Family History (Updated 10/30/24 @ 21:44 by Krystal Salinas) Sister Family history of CHF (congestive heart failure) Family history of myocardial infarction Family history of COPD (chronic obstructive pulmonary disease) Family history of stroke Mother Family history of COPD (chronic obstructive pulmonary disease) Family history of diabetes mellitus Father Family history of COPD (chronic obstructive pulmonary disease) Family history of cancer Family history of diabetes mellitus Brother Family history of diabetes mellitus Other Chronic pancreatitis Social History (Updated 10/30/24 @ 21:45 by Krystal Salinas) Within the past year, how often did you have a drink containing alcohol: never Score interpretation: A score less than 4 is consistent with normal alcohol consumption. Smoking status: Current every day smoker Non-prescribed substance use: denies use Previous occupational history: disabled Highest level of school completed/degree received: 11th grade Are you now , , , , never or living with a partner: In a typical week, how many times do you talk on the telephone with family, friends, or neighbors: 3 or more times per week How often do you get together with friends or relatives: 3 or more times per week How often do you attend hindu or congregational services: never Little interest or pleasure in doing things: not at all Feeling down, depressed, or hopeless: not at all Feel stressed/tense/nervous/anxious/difficulty sleeping: not at all Due to disability, difficulty making decisions: No Do you think of yourself as: straight/heterosexual Gender Identity: male Meds Home Medications and Allergies Home Medications ?Medication ?Instructions ?Recorded ?Confirmed ?Type famotidine 40 mg tablet 40 mg PO DAILY 10/30/24 07/07/22 History pantoprazole 40 mg tablet,delayed 40 mg PO DAILY 10/3010/30/24 History release acetaminophen 325 mg tablet 650 mg PO Q6H PRN pain 08/2210/31/24 History albuterol sulfate 90 mcg/actuation 2 inh inhalation QI D 10/31/24 10/31/24 History breath activated powder inhaler cholecalciferol (vitamin D3) 75 3,000 unit PO DAILY 10/31/24 History mcg (3,000 unit) tablet ferrous sulfate 325 mg (65 mg 325 mg PO DAILY 10/31/24 10/31/24 History iron) tablet (Mesfin-Time) folic acid 1 mg tablet 1 mg PO DAILY 10/31/2410/31 History gabapentin 600 mg tablet 600 mg PO TID 10/31/2410/31 History levothyroxine 25 mcg capsule 25 mcg PO DAILY 10/31/24 10/31/24 History midodrine 5 mg tablet 5 mg PO TID 10/31/24 5 History polyethylene glycol 3350 17 gram 17 g PO DAILY 5 10/31/24 History oral powder packet (Miralax) sucralfate 1 gram tablet 1 g PO ACHS 10/31/24 5 History tiotropium bromide 1.25 2 inh inhalation DAILY 10/3110/31/24 History mcg/actuation mist for inhalation (Spiriva Respimat) Allergies Allergy/AdvReac Type Severity Reaction Status Date / Time No Known Drug Allergies Allergy Verified 10/30/24 17:26 Exam Narrative Exam Narrative: Derm: 3.2 x 2.8 cm ulceration on the posterior right heel with Achilles tendon exposure. No fluctuance or purulent drainage. Dry serosanguineous drainage noted on bandage. Negative probe to bone. No surrounding erythema. Numerous partial-thickness wounds on bilateral legs all without signs of infection Vascular: Dorsalis pedis pulse is faintly palpable bilaterally while the posterior tibial pulse is nonpalpable. Absent digital hair with atrophic skin changes Neuro: Protective sensation is absent MSK: Ankle joint dorsiflexion is to neutral but not past. Patient is able to fire all muscle groups symmetrically although generalized weakness is noted. No pain on palpation Constitutional Vital Signs, click to edit/add: Last Vital Signs Temp 97.9 F 11/03/24 15:46 Pulse 62 11/03/24 15:46 Resp 16 11/03/24 15:46 BP 135/70 11/03/24 15:46 Pulse Ox 94 L 11/03/24 15:46 O2 Del Method Room Air 11/03/24 15:46 O2 Flow Rate 2 11/02/24 03:42 Results Labs Labs: Short CBC 11/03/24 Range/Units 05:22 WBC 11.6 H (4.0-11.0) 10^3/uL Hgb 9.5 L (14.0-18.0) g/dL Hct 28.8 L (42.0-54.0) % Plt Count 313 (150-450) 10^3/uL BMP 11/03/24 05:22 Sodium 134 L Potassium 4.7 Chloride 102 Carbon Dioxide 25.4 BUN 14.0 Creatinine 0.74 Glucose 94 Calcium 8.3 L Assessment and Plan Assessment and Plan (1) Decubitus ulcer of foot, stage 2: Assessment and Plan: Dry sterile dressing changes daily with application of Santyl. No circumferential dressings are to be applied Offloading with bunny boots Qualifiers: Laterality: right Qualified Code(s): L89.892 - Pressure ulcer of other site, stage 2 (2) Constipation: (3) Chronic pancreatitis: (4) Pleural effusion: (5) COPD (chronic obstructive pulmonary disease): (6) HTN (hypertension): Plan Patient seen at bedside and has a limb threatening issue associated with nonhealing pressure ulcer with Achilles tendon exposure. Offloading was stressed to the patient and patient is to be in bunny boots at all times when in bed Santyl was ordered. MRI is concerning for osteomyelitis however clinically the wound does appear to be healthy and primarily granular. Mr. Rivera has numerous comorbidities which complicate his healing potential. Specifically I am concerned of his vascular status. Given his ulcer appears healthy today I recommend vascular workup as an outpatient prior to proceeding with bone biopsy or invasive procedure, therefore Santyl is indicated with strict off-loading. I am happy to follow with the patient in our wound center however he is known to wound center at [facility]. Nursing will ensure of follow-up with them. [facility] also has vascular surgery who he may followup with there as well. Please call with any updates or change in patient's status.
--- NOTE | 2024-11-03 17:18 | DIETREC ---
Recommend 30 mL PRO-stat BID and 1 packet Mandeep BID to aid wound healing.
[2024-11-03] MEDS: COLLAGENASE CLOSTRIDIUM HIST. 250 UNITS/GM 30 GRAM TUBE 1 APPLIC TOPICAL (18:06)
[2024-11-03] MEDS: SENNOSIDES 8.6 MG TABLET PO (21:37)
[2024-11-03] MEDS: ENSURE HP 237 ML LIQUID PO (21:37)
[2024-11-04] VITALS: BP 108/57; PULSE 66; TEMP 36.8; O2SAT 95
[2024-11-04] MEDS: OXYCODONE HCL 5 MG TABLET PO ×2 (03:38→08:43)
[2024-11-04 04:00] VITALS: BP 86/50; PULSE 61; TEMP 36.1; O2SAT 90
[2024-11-04 05:51] LABS: Hematocrit 27.9 % (42.0-54.0); Hemoglobin 9.3 g/dL (14.0-18.0); Immature Granulocytes Abs Auto 0.06 10^3/uL (0.00-0.03); Immature Granulocytes Pct Auto 0.6 % (0.0-0.5); Lymphocytes Absolute Auto 2.6 10^3/uL (1.2-3.8); Mean Corpuscular HGB Conc 33.3 g/dL (29.9-35.2); Mean Corpuscular Hemoglobin 29.2 pg (25.9-34.0); Mean Corpuscular Volume 87.5 fL (80.0-94.0); Platelet Count 295 10^3/uL (150-450); Red Blood Count 3.19 10^6/uL (4.70-6.10); White Blood Count 10.8 10^3/uL (4.0-11.0)
[2024-11-04 06:03] LABS: Anion Gap 13.3; Blood Urea Nitrogen 18.0 mg/dL (7.0-18.0); Calcium 8.1 mg/dL (8.5-10.1); Carbon Dioxide 24.4 mmol/L (21.0-32.0); Chloride 96 mmol/L (98-107); Estimated GFR (African America >60 (>=60 mL/min/1.73m^2); Estimated GFR (Non-African Ame >60 (>=60 mL/min/1.73m^2); Glucose 156 mg/dL (74-106); Potassium 4.7 mmol/L (3.5-5.1); Sodium 129 mmol/L (136-145)
[2024-11-04 06:12] LABS: Magnesium 1.4 mg/dL (1.8-2.4)
[2024-11-04] MEDS: GABAPENTIN 300 MG CAPSULE 600 MG PO (06:27)
[2024-11-04] MEDS: LEVOTHYROXINE SODIUM 25 MCG TABLET PO (06:27)
[2024-11-04 07:26] VITALS: BP 92/52; PULSE 64; TEMP 36.6; O2SAT 98
[2024-11-04] MEDS: COLLAGENASE CLOSTRIDIUM HIST. 250 UNITS/GM 30 GRAM TUBE 1 APPLIC TOPICAL (08:41)
[2024-11-04] MEDS: FAMOTIDINE 20 MG TABLET 40 MG PO (08:43)
[2024-11-04] MEDS: ENOXAPARIN SODIUM 40 MG/0.4 ML SYRINGE SUBQ (08:43)
[2024-11-04] MEDS: POLYETHYLENE GLYCOL 3350 17 GM POWDER PACKET PO (08:43)
[2024-11-04] MEDS: FERROUS SULFATE 325 MG TABLET PO (08:43)
[2024-11-04] MEDS: PANTOPRAZOLE SODIUM 40 MG TABLET.DR PO (08:43)
[2024-11-04] MEDS: LINEZOLID 600 MG TABLET PO (08:43)
[2024-11-04] MEDS: ENSURE HP 237 ML LIQUID PO (08:44)
[2024-11-04] MEDS: DOCUSATE SODIUM 100 MG CAPSULE PO (08:44)
[2024-11-04 09:48] VITALS: PULSE 67; O2SAT 92
[2024-11-04] MEDS: MAGNESIUM SULFATE IN WATER 4 GM/100 ML PIGGYBACK IV (09:58)
--- NOTE | 2024-11-04 11:15 | P.DS_ITS ---
DS: Providers Provider Date of admission: 10/30/24 23:11 Primary care physician: XOCHITL ROCHE Consults: 10/30/24 20:53 Consult to Dietitian Routine Reason for consultation: Malnutrition Occupational Therapy Eval and Treat Routine Reason for consultation: Weakness Physical Therapy Eval and Treat Routine Reason for consultation: weakness 11/01/24 12:04 Consult to Podiatry Routine Consulting Provider: Aaron Sandy Reason for consultation: L heel diabetic foot ulcer DS: Diagnosis Discharge Diagnosis (1) Decubitus ulcer of foot, stage 2: Qualifiers: Laterality: right Qualified Code(s): L89.892 - Pressure ulcer of other site, stage 2 (2) Constipation: (3) Chronic pancreatitis: (4) Pleural effusion: (5) COPD (chronic obstructive pulmonary disease): (6) HTN (hypertension): DS: Summary Hospital Course Hospital Course: Mr. Rivera is a 63-year-old gentleman who came in with nausea and vomiting and was found to have the following Stage II ulceration involving the left heel Wound culture completed at [facility] wound clinic came back positive for Proteus, MRSA and Enterococcus faecalis. Change antibiotic to ceftriaxone and Zyvox. Patient will be discharged on Zyvox and Ceftin. MRI came back suspicious for osteomyelitis but not confirmed. Patient was seen by swatch clerk who did not recommend any additional inpatient investigation but to follow-up with the wound clinic. Recommended offload and application of Santyl Patient will be instructed to follow-up with infectious disease specialist Dr. Rivera in addition to the wound care center. Patient will be given antibiotic for 30 days. This will need to be extended by PCP or Dr. Rivera if the clinical suspicion is that patient has osteomyelitis. RICO index to rule out significant vascular disease. This came back positive for significant stenosis in the left leg. Clinically there is no clinical evidence of acute arterial compromise or acute arterial occlusion. Patient will be arranged to follow-up with the vascular team Dr. Saldaña at [facility]. Peripheral vascular disease is suspected based on RICO index Patient will be arranged to follow-up with the vascular team Dr. Saldaña at [facility]. Sepsis versus SIRS present on admission Thus far blood cultures negative. UA is negative. Elevated C-reactive protein. Continue oral antibiotic for infected left heel ulceration and the patient is to follow-up with Dr. Rivera Anemia, no evidence of acute blood loss. Patient will likely require to have anemia workup to be done in the outpatient setting to be handled by PCP in collaboration with other needed outpatient providers. This may include but not limited to EGD, colonoscopy, referral to see hematology and other needed age-appropriate cancer screening. Apparently patient had recent GI investigation completed at [facility]. I do not have records on that. Patient is to follow-up with GI specialist at [facility] as previously arranged and recommended prior to this admission. Cachexia, frailty, muscle wasting and atrophy, moderate protein calorie nutrition Unknown theology. Possible malabsorption, possibility of anorexia, possibility of underlying malignancy I started patient on oral protein supplementation. Patient would likely require to have additional workup and investigation to rule out malignancy. This may include but not limited age-appropriate cancer screening to be handled by his PCP in collaboration with outpatient GI, probable oncology involvement. Furthermore, patient has been a smoker for many years. He is at risk having lung cancer. Oncology lung cancer screening is recommended with low-dose radiation CAT scan of the chest. Hypokalemia, hypomagnesemia Potassium and magnesium supplementation. Normal phosphorus level. Patient will be discharged on oral magnesium supplementation. Pleural effusion, scarring , abnormality seen on CT imaging of the chest for which patient was recommended to have follow-up imaging in 6 months. To be arr anged by PCP Recommend outpatient elective follow-up with pulmonary team to be arranged by PCP. COPD, no exacerbation. Patient quit smoking 2016. Patient is to follow-up with his hospital administrative assistant Hypothyroidism Continue Synthroid. Neuropathy Continue gabapentin Chronic medical conditions not listed above, incidental findings seen on labs and imaging. These would need to be addressed. Could be addressed when time and condition are appropriate. Could be addressed in the outpatient setting by PCP collaboration with other needed outpatient providers. Patient has multiple complex medical issues as listed above and others that are not listed. All appear to be stable from the inpatient standpoint. I do not have any clear or strong clinical justification to extend inpatient hospitalization. Patient however will require close and frequent monitoring as well as additional work-up, investigation and therapeutic intervention that could take place from this point on post discharge. That is to prevent relapse, decompensation, rehospitalization and other medical implications. I instructed patient to ask her primary care doctor to obtain [facility] record entirely to address abnormalities seen on labs and imaging that I have and have not addressed during this hospitalization, follow-up on pending blood work, imaging and pathology is if available and to follow-up on needed medical care in the outpatient setting. Time Spent with Patient Time attestation: Total time spent providing and/or coordinating discharge services: Time spent: greater than 30 minutes Exam Narrative Exam Narrative: Cachectic and frail. Bitemporal muscle wasting. Upper and lower extremities muscle wasting and atrophy. Chest is clear, heart is regular. Abdomen soft. Lower extremities no cyanosis or clubbing. No varices or edema. Stage II at le ast ulceration involving the left heel with exudates. No foul smelling. Faint dorsalis pedis pulse. Constitutional Vital Signs, click to edit/add: Last Vital Signs Temp 97.8 F 11/04/24 07:26 Pulse 67 11/04/24 09:48 Resp 16 11/04/24 07:26 BP 92/52 11/04/24 07:26 Pulse Ox 92 L 11/04/24 09:48 O2 Del Method Room Air 11/04/24 09:48 O2 Flow Rate 2 11/02/24 03:42 DS: Data Data Completed and Pending Labs on day of discharge: Labs from last 24 hours 11/04/24 05:34 WBC 10.8 RBC 3.19 L Hgb 9.3 L Hct 27.9 L MCV 87.5 MCH 29.2 MCHC 33.3 RDW 14.2 Plt Count 295 MPV 10.0 Neut % (Auto) 50.3 Lymph % (Auto) 24.4 [place] % (Auto) 10.5 Eos % (Auto) 13.6 H Baso % (Auto) 0.6 Neut # (Auto) 5.4 Lymph # (Auto) 2.6 [place] # (Auto) 1.1 H Eos # (Auto) 1.5 H Baso # (Auto) 0.1 Abs Immat Gran (auto) 0.06 H Imm/Tot Granulo (auto) 0.6 H Sodium 129 L Potassium 4.7 Chloride 96 L Carbon Dioxide 24.4 Anion Gap 13.3 BUN 18.0 Creatinine 0.78 Est GFR ( Amer) >60 Est GFR (Non-Af Amer) >60 BUN/Creatinine Ratio 23.1 Glucose 156 H Calcium 8.1 L Magnesium 1.4 L C-Reactive Protein 4.41 H Preliminary micro results at discharge 11/01/24 12:39 Blood Culture Result 2 - Preliminary Blood - Left Forearm NO GROWTH AT 36-48 HOURS. FINAL TO FOLLOW. 11/01/24 12:32 Blood Culture Result 1 - Preliminary Blood - Right Forearm NO GROWTH AT 36-48 HOURS. FINAL TO FOLLOW. Discharge Plan Discharge Disposition: Home, Self-Care Health Concerns: I may not have addressed or treated all of your medical illnesses or the abnormal blood work or imaging studies during this hospitalization. Please ask your primary care provider to obtain [facility] records entirely to follow up on all of the abnormal physical, laboratory, and imaging findings that I have not a ddressed. Please return back to the emergency room or seek medical attention if your symptoms worsen or return. Please follow-up with your [facility] specialists (stomach and liver s pecialist as previously recommended to you ) Please follow-up with vascular ( circulation specialist ) at [facility]. Please follow-up with the wound clinic at [facility] You have lost a lot of weight. You may need to have additional investigation for weight loss to make sure that there is nothing serious going on. This is to be arranged and handled by your primary care doctor and/or in collaboration with other needed outpatient specialists Please cut down on smoking and quit smoking completely by end of November Discharging you from [facility] does not mean that your medical care ends here and now. You may still need additional monitoring, work up, investigation, and treatment plan to be handled from this point on by out patient providers including your primary care provider and specialists. For any medication question, please contact your retail pharmacist or your primary care provider. Thank you. Discharge Medications: New Santyl 250 unit/gram Ointment 1 applic topical QD Qty: 15 0RF sennosides-docusate sodium [Senna Plus] 8.6-50 mg Tablet 1 tab-cap PO HS Qty: 30 2RF linezolid 600 mg Tablet 600 mg PO BID Qty: 60 0RF docusate sodium 100 mg Capsule 100 mg PO BID PRN (Reason: constipation) Qty: 30 1RF oxycodone 5 mg Tablet 5 mg PO Q4H PRN (Reason: Pain Scale 7-10) Qty: 25 0RF Lactobacillus acidoph-L. bifid 1 billion cell wafer 1 tab PO DAILY Qty: 30 1RF Rx Instructions: administer (preferably) with milk magnesium oxide 420 mg tablet 420 mg PO DAILY Qty: 30 2RF cefdinir 300 mg capsule 300 mg PO BID 30 Days Qty: 60 0RF Continued pantoprazole 40 mg tablet,delayed release (DR/EC) 40 mg PO DAILY ferrous sulfate [Mesfin-Time] 325 mg (65 mg iron) tablet 325 mg PO DAILY levothyroxine 25 mcg capsule 25 mcg PO DAILY polyethylene glycol 3350 [Miralax] 17 gram powder in packet 17 g PO DAILY acetaminophen 325 mg tablet 650 mg PO Q6H PRN (Reason: pain) folic acid 1 mg tablet 1 mg PO DAILY gabapentin 600 mg tablet 600 mg PO TID Spiriva Respimat 1.25 mcg/actuation mist 2 inh inhalation DAILY cholecalciferol (vitamin D3) 75 mcg (3,000 unit) tablet 3,000 unit PO DAILY albuterol sulfate 90 mcg/actuation aerosol powdr breath activated 2 inh inhalation QID sucralfate 1 gram tablet 1 g PO ACHS Discontinued famotidine 40 mg tablet 40 mg PO DAILY midodrine 5 mg tablet 5 mg PO TID Patient Comments: sunday, sunday Rx Instructions: do not give last dose of day after 6PM or within 4 hrs of bedtime Print Language: Occitan Patient Instructions: Constipation (DC), Acute Nausea and Vomiting (DC) Forms: Portal Instructions Follow Up Appointments: . November 06 @ 11am with [facility] [phone] . November 13 @ 10:15am with Dr. Baldwin (Vascular) [address] [place] [address] . November 13 @ 3pm with [facility] [phone] . November 20 @ 2:15pm with Dr. Rivera - infectious disease [address] [place] [address] [facility] [phone]
--- NOTE | 2024-11-04 11:41 | REH.PTDLY ---
Physical Therapy Daily Note PT Daily Note/Assess Start: 11/01/24 10:23 Freq: Status: Active Protocol: Document 11/04/24 11:32 CARLOTA (Rec: 11/04/24 11:41 [email or web address] [id number]) Physical Therapy Daily Note/Assessment Time In 11:10 Time Out 11:30 Subjective Pt sleeping upon arrival, willing to work with PT. States he is going home today. Therapeutic Exercise 4 Minutes (minutes) Therapeutic Exercise 0 Units Therapeutic Activity 9 Minutes (minutes) Therapeutic Activity 1 Units Therapeutic Activity Supine to sit transfers CGA. Pt reports some mild Comments dizziness with sitting bedside. Pt performed seated exs and then stood. Dizziness increases significantly, stood for 30 seconds and needs to sit back down. BP taken at this time and is 64/41 in R arm. Pt returned to supine and nursing notified. Nursing comes in and takes BP in L arm with similar result. Nursing then takes manually with BP still reading low, pt returned to sit for a BP recheck. Pt states BP is usually low with top number being in the 80s. Nursing states pt had pain meds earlier that probably is the cause of the low BP. Pt stood again stating some dizziness, with CGA x2 attempted to have pt sit in chair per nursing request, after about 3 feet pt states he is getting too dizzy. Mod A x2 to sit pt back onto bed. Pt returns to supine with feet elevated. Total Therapy 13 Minutes Total Physical 1 Therapy Units Daily Note Summary Pt unable to ambulate safely due to increased dizziness this morning due to low BP. Notified nursing that pt has not ambulated far with therapy since being admitted and unsure of how pt will do getting around at home if he is leaving today.
[2024-11-04 11:43] VITALS: BP 84/52; PULSE 60; TEMP 36.7; O2SAT 98
--- NOTE | 2024-11-04 12:55 | SWNOTE1 ---
Pt is discharging today. SW faxed dc med rec, CRF, dc summary, and podiatry consult to Rosa Maria RODRIGUEZ.
--- NOTE | 2024-11-04 13:08 | CM.NOTE ---
Rounds made with Dr. Blandon. Plan for discharge today. Follow up with Infectious Disease, Vascular-Dr. Baldwin, [facility] and Ened[facility] [place] in [place].
[2024-11-04 13:26] VITALS: BP 86/56
--- NOTE | 2024-11-05 11:30 | CM.DCFOLLOWU ---
1st attempt 11/05/24, no answer
--- NOTE | 2024-11-06 13:34 | CM.DCFOLLOWU ---
2nd attempt 11/06/24, no answer
--- NOTE | 2024-11-07 13:24 | CM.DCFOLLOWU ---
Person spoke with:patient How are you feeling?well How is your pain?none Did you understand your discharge instructions?yes Do you have any questions about your discharge instructions? no Were you given any prescriptions at discharge?yes Were you able to get your prescriptions filled?yes Do you understand how to take your medications as ordered?yes Do you have any questions about your follow up appointment and do you plan to keep your follow up appointment? no questions, pt voiced he is aware of all follow ups and so is his , he plans on going to them Is there anything else that you would like to discuss?no Questions/Comments/Concerns/Other:none
== END 2024-11-04 14:25 | disposition home health service (06) | DRG 872 ==
LOC: ER 20:31 → MS 21:36
PROVIDERS: Emergency Medicine; Admitting Provider Student in an Organized Health Care Education/Training Program; Emergency Provider Emergency Medicine; Visit Provider Internal Medicine
DX: A41.9 Sepsis, unspecified organism (principal); E44.0 Moderate protein-calorie malnutrition; J90 Pleural effusion, not elsewhere classified; K86.1 Other chronic pancreatitis; Z68.1 Body mass index [BMI] 19.9 or less, adult; R65.10 Systemic inflammatory response syndrome (SIRS) of non-infectious origin without acute organ dysfunction; L89.892 Pressure ulcer of other site, stage 2; J44.9 Chronic obstructive pulmonary disease, unspecified; E03.9 Hypothyroidism, unspecified; B96.4 Proteus (mirabilis) (morganii) as the cause of diseases classified elsewhere; B95.62 Methicillin resistant Staphylococcus aureus infection as the cause of diseases classified elsewhere; B95.2 Enterococcus as the cause of diseases classified elsewhere; I10 Essential (primary) hypertension; F10.21 Alcohol dependence, in remission; K56.41 Fecal impaction; M81.0 Age-related osteoporosis without current pathological fracture; E87.6 Hypokalemia; I73.9 Peripheral vascular disease, unspecified; E78.5 Hyperlipidemia, unspecified; I25.10 Atherosclerotic heart disease of native coronary artery without angina pectoris; G62.9 Polyneuropathy, unspecified; E83.42 Hypomagnesemia; Z87.891 Personal history of nicotine dependence; Z96.643 Presence of artificial hip joint, bilateral; Z79.899 Other long term (current) drug therapy; Z79.890 Hormone replacement therapy; Z96.641 Presence of right artificial hip joint
CPT/HCPCS: 36415; 71250; 73630; 73718; 74177; 80048; 80053; 80076; 80202; 81001; 82150; 82306; 83036; 83605; 83690; 83735; 84100; 85025; 85027; 86140; 86480; 87040; 87070; 87075; 93005; 93922; 94640; 94761; 96361; 96365; 96366; 96375; 97163; 97165; 97530; 99285; 99406; J0696; J1650; J2405; J3370; J3475; J3480; J3490; P9046; Q9967